=== PATIENT | female | born 1990 | race Asian ===

== ENCOUNTER 2024-12-24 08:01 | Outpatient (AMB) | payer BC, SELFPAY ==
--- OUTSIDE RECORDS SUMMARY | 2024-12-18 08:46 | XMS_ITS | Encounter Summary ---
Author Organization [facility] Address [address] [place] [address] Phone Care Team Providers Care Assembler Show Motor Name Role Phone Christopher Jones CNP Primary Care Provider [phone] Mirna Rosario MD Unavailable [phone] Tamar Herron RN Unavailable [email or web address] Dixie Jones PA-C Unavailable [phone] Encounter Details Date Type Department Care Team (Late st Contact Info) Description 12/18/2024 8:46 AM EDT - 12/18/2024 11:59 PM EDT Hospital Encounter [facility] [address] [place] [address] Christopher Jones CNP 29 [facility] [place] [address] [email or web address] Discharge Disposition: Home or Self Care Social History Tobacco Use Types Packs/Day Years Used Date Smoking Tobacco: Never Smokeless Tobacco: Never Alcohol Use Standard Drinks/Week Comments Never 0 (1 standard drink = 0.6 oz pur e alcohol) Child or Family Care Answer Date Record ed Do you have problems with on e of the following making it difficult for you to work, study, or receive health care? No 12/18/2024 Education Answer Date Recorded Are you interested in help w ith more adult education (for example, completing high school, GED, job training, learning the Chinese language, technical skills, or developing parenting skills)? No 12/18/2024 Are you concerned about learning? Not on file 12/18/2024 No 12/18/2024 Yes 12/18/2024 Food Answer Date Recorded Within the past 6 months we worried whether our food would run out before we got money to buy more. Never True 12/18/2024 Within the past 6 months the food we bought just didn't last and we didn't have enough money to get more. Never True Residential Stability Answer Date Recor ded What is your housing situation today? I have louis sing 12/18/2024 How many times have you move d in the past 12 months? Zero (I did not move) 12/18/2024 Paying for Meds Answer Date Recorded Do you have trouble paying for medicines? No 12/18/2024 Paying Utility Bills Answer Date Record ed Do you have trouble paying your heating or elect ricity bill? No 12/18/2024 Transportation Answer Date Recorded Has the lack of transportati on kept you from medical appointments or from getting medications? No 12/18/2024 Unemployment Answer Date Recorded Are you currently unemployed or working on a part-time or temporary basis, and looking for work? No 12/18/2024 Digital Access Answer Date Recorded No 12/18/2024 Yes 12/18/2024 Do you have reliable internet access at home? Ye s 12/18/2024 Do you have a device (e.g., phone, tablet, computer) with a working camera? Yes 12/18/2024 Intimate Partner Violence Answer Date R ecorded Denied Basic Needs Not on file 12/18/2024 In the past 12 months have y ou been in a relationship with a person who hurts, threatens, or tries to control you? No 12/18/2024 Worried food would run out Not on file 12/18 In the past 12 months have y ou been in a relationship with a person who hurts, threatens, or tries to control you? No 12/18/2024 Comments No Sex and Gender Information Value Date Recorded Sex Assigned at Female 09/01/2022 10:28 AM EDT Legal Sex Female 10:14 AM EDT Gender Identity Female 09/01/2022 10:18 AM EDT Sexual Orientation Straight 09/01/2022 10 :28 AM EDT documented as of this encounter Medications at Time of Discharge AIRSUPRA 90-80 mcg/actuation inhaler Inhale 2 puffs into the lungs daily as needed. 09/26/2023 albuterol 90 mcg/actuation inhalerIndications :Mild intermittent asthma without complication Inhale 2 puffs into the lungs every 6 (six) hours as needed for wheezing. 18 g 3 12/18/2024 cholecalciferol (VITAMIN D3) 2,000 unit capsule Vitamin D3 2,000 unit capsule erythromycin 2 % external solution Apply topically daily as needed (acne). 60 mL 1 12/18/2024 famotidine (PEPCID) 20 MG tablet 20 mg twice a day by oral route. LACTOBAC NO.41-BIFIDOBACT NO.7 ORAL Probiotic lansoprazole (PREVACID) 15 MG capsule 08/02/2021 magnesium glycinate 100 mg magnesium Cap metFORMIN (GLUCOPHAGE-XR) 500 MG 24 hr tabletIndications: PCOS (polycystic ovarian syndrome) Take 1 tablets by mouth in the morning and two tablets by mouth in the evening 270 tablet 2 12/18/2024 ondansetron (ZOFRAN) 4 MG tablet multivitamin with minerals Take by mouth. rimegepant (NURTEC ODT) 75 mg tablet 09/16/2021 SYNTHROID 50 mcg tabletIndications: Female fertility problem Take 1 tablet (50 mcg total) by mouth every morning. 90 tablet 3 12/18/2024 tiZANidine (ZANAFLEX) 2 MG tablet Take 2 mg by mouth every 8 (eight) hours as needed. 08/04/2023 triamcinolone acetonide 0.025 % creamIndications:R sheldon and other nonspecific skin eruption Apply topically 2 (two) times a day as needed (itching). 30 g 1 10/21/2024 documented as of this encounter Plan of Treatment Upcoming Encounters Date Type Department Care Team (Late st Contact Info) Description 12/18/2024 Procedure Pass [facility], [address] [address] 01/21/2025 8:30 AM EDT Telemedicine [facility] at [address] [address] Dixie Jones PA-C [address] [place] [address] 08/05/2025 7:45 AM EDT Appointment [facility], [facility] [address] [place] [address] Christopher Jones, FEEDER SWITCHBOARD OPERATOR [address] [place] [address] [email or web address] 12/24/2025 8:00 AM EDT Office Visit [address] [address] Christopher Jones, FEEDER SWITCHBOARD OPERATOR [address] [place] [address] [email or web address] documented as of this encounter Procedures Procedure Name Priority Date/Time Associated Diagnosis Comments COMPREHENSIVE METABOLIC PANEL Routine 12/18/2024 8:46 AM EDT Iron deficiency PCOS (polycystic ovarian syndrome) Annual physical exam Gastroesophageal reflux disease without esophagitis 25-OH VITAMIN D Routine 12/18/2024 8:46 AM EDT Vitamin D deficiency MAGNESIUM Routine 12/18/2024 8:46 AM EDT Gastroesophageal reflux disease without esophagitis LIPID PANEL Routine 12/18/2024 8:46 AM EDT Screening for hyperlipidemia documented in this encounter Results * Comprehensive metabolic panel (12/18/2024 8:46 AM EDT) SODIUM 137 133 - 146 mmol/L [facility] POTASSIUM 3.9 3.3 - 5.1 mmol/L [facility] CHLORIDE 102 96 - 108 mmol/L [facility] CO2 27 21 - 35 mmol/L [facility] BUN 7 6 - 19 mg/dL [facility] CREATININE 0.50 0.5 - 1.5 mg/dL [facility] GLUCOSE 85 70 - 99 mg/dL [facility] ALBUMIN 4.0 3.9 - 4.8 g/dL [facility] TOTAL PROTEIN 7.5 6.5 - 8.0 g/dL [facility] CALCIUM 9.2 8.4 - 10.3 mg/dL [facility] ALKALINE PHOSPHATASE 60 39 - 117 U/L [facility] TOTAL BILIRUBIN 0.3 0.0 - 1.2 mg/dL [facility] AST 18 0 - 37 U/L [facility] ALT 14 0 - 40 U/L [facility] GLOBULIN 3.5 1 - 4.8 g/dL [facility] EGFR >120 >59 mL/min/1.7 3m2 [facility] Comment:Estimated glomerular filtration rate calculated using the CKD-EPI refit equation. ANION GAP 12 10 - 20 mmol/L [facility] Blood 12/18/2024 8:46 AM EDT 12/18/2024 8:51 AM EDT Christopher Jones [facility] BLOOD ORDERABLES Final Result [address] [address] * Magnesium (12/18/2024 8:46 AM EDT) MAGNESIUM 2.2 1.6 - 2.6 mg/dL [facility] Blood 12/18/2024 8:46 AM EDT 12/18/2024 8:51 AM EDT Christopher Jones [facility] BLOOD ORDERABLES Final Result [address] [address] * 25-OH vitamin D (12/18/2024 8:46 AM EDT) 25 OH VIT D (TOTAL) 57 30 - 60 ng/mL [facility] Blood 12/18/2024 8:46 AM EDT 12/18/2024 8:51 AM EDT Christopher Jones FEEDER SWITCHBOARD OPERATOR LAB BLOOD ORDERABLES Final Result Performing Organization Address [facility] Co de Phone Number [address] [address] * (ABNORMAL) Lipid panel (12/18/2024 8:46 AM EDT) HDL 59 mg/dL [facility] Comment: Interpretation <40 mg/dL: Low HDL cholesterol (major risk factor for CHD) Greater than or equal to 60 mg/dL: High HDL cholesterol ( negative risk factor for CHD) HDL - cholesterol is affected by a number of factors, e.g. smoking, excerise, hormones, sex and age. CHOLESTEROL 226 0 - 240 mg/dL [facility] TRIGLYCERIDES 131 30 - 160 mg/dL [facility] LDL 141(H) 50 - 129 mg/dL [facility] Comment: LDL levels in terms of risk for coronary heart disease: <100 mg/dL: Optimal 100-129 mg/dL: Near or above optimal 130-159 mg/dL: Borderline high 160-189 mg/dL: High >190 mg/dL: Very High CARDIAC RISK RATIO 3.8 3.3 - 4.4 C [facility] Blood 12/18/2024 8:46 AM EDT 12/18/2024 8:50 AM EDT Christopher Jones FEEDER SWITCHBOARD OPERATOR LAB BLOOD ORDERABLES Final Result Performing Organization Address [facility]/ZIP Co de Phone Number [address] [address] documented in this encounter Visit Diagnoses Diagnosis Screening for hyperlipidemia Screening for lipoid disorders Vitamin D deficiency Gastroesophageal reflux disease without esophagitis Esophageal reflux Iron deficiency Disorders of iron metabolism PCOS (polycystic ovarian syndrome) Polycystic ovaries Annual physical exam Routine general medical examination at a health care facility documented in this encounter Additional Health Concerns Assessment Noted Time PHQ-9 Depression Total Score: 3 12/19/19 25 8:10 AM EDT PHQ-2 Depression Total Score: 2 12/19/19 8:10 AM EDT documented as of this encounter Care Teams Assembler Show Motor Relationship Specialty Start Date End Date Christopher Jones CNP [address] [place] [address] [email or web address] PCP - General [facility] 03/16/23 Mirna Rosario MD [address] [place] [address] [email or web address] Obstetrics and Gynecology 10/03/23 Tamar Herron RN [address] [place] [phone] [email or web address] Registered Nurse 10/03/23 Dixie Jones, SACHI [address] [place] [address] [email or web address] Physician Web Development Instructor Physician Web Development Instructor 10/17/24 documented as of this encounter Additional Source Comments The information contained in this document represents components of the legal health record. It is not the complete legal health record.[facility]
--- NOTE | 2024-12-24 08:04 | A.OFFVIS_ITS ---
Vital Signs 12/24/24 08:06 Height 5 ft 3 in Weight 148 lb BMI 26.2 Blood Pressure Location Rt brachial Position Sitting Intake Visit Reasons: Re-Establish Care - Migraine, Migraine Accompanied by: Spouse Allergies Penicillins Allergy (Unknown, Verified 12/24/24 08:05) rash Medication List - Last Reconciled 12/24/24 by Agueda Mai, LIA lansoprazole 15 mg PO DAILY levothyroxine (Synthroid) 50 mcg PO QAM magnesium sulfate 100 mg PO DAILY metformin ER mg PO ondansetron 4 mg PO Q6H PRN rimegepant (Nurtec ODT) mg PO tizanidine 2 mg PO Q8H PRN HPI Comments Details: Main is a 34-year-old female patient with a past medical history of asthma and PCOS presenting to the office today to re-establish care with myself, transferring from [facility]. She was a previous patient of mine at [facility] where she was receiving occipital nerve blocks and trigger point injections routinely for headache maintenance. Going back many years, Main being having headaches around age 9 at the time of her menses onset. When her migraines 1st began, they were predominantly located on the right side of her head though in college headaches worsened and became more left-sided dominant. She also has a history of bruxism which has likely contributed to her headaches overall. Currently, headaches are still left-sided dominant though do still occur at times on the right. Headache locations are typically to the temporal areas and occipital areas. She is currently averaging approximately 5 migraines per month lasting 2-6 hours. The sooner she takes an abortive medication the shorter duration of headache. She experiences visual auras with approximately 25% of her migraines are less. 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 This has occurred 3 times in her lifetime that she is aware of. Most of her migraines are accompanied by nausea, difficulty concentrating, light and sound sensitivity, fatigue, and occasionally a droopy left eye. When she does have a migraine, she takes Nurtec 75 mg which works well at approximately 75% efficacy. She has tried Ubrelvy in the past which did work better although has been difficult to obtain due to insurance preferred agents. She started occipital nerve blocks and temporal trigger point injections approximately 8 years ago. For some time, she was also doing a left auricular temporal nerve block however she feels that over the course of last few years her bruxism has improved some and we have not been performing left auricular temporal nerve blocks over the past year or so. She does continue to do well with the nerve blocks and trigger point injections and previously with attempts to reduce the frequency at which she was getting the injections, she had an uptake in her migraines. She is currently getting them once per month with good headache control. Social: Lives home with Works pharmacy at the [employer] from home. ETOH: None Tobacco: Never Substance use: None Caffeine: 1-2 cups coffee per day Sleep: Sleeps about 8-9 hours per night and feels generally rested in the morn ing. Last eye exam: 03/2024 Past medication trials: Sumatriptan- Not effective Frovatriptan- Not effective Rizatriptan- Not effective Naratriptan- Not effective Propranolol- Dizziness, no significant benefit Ubrelvy- Worked well. Stopped for insurance purposes Nurte- Works well Gabapentin- Not effective Cyclobenzaprine- Excessive sedation Cymbalta- Hypertension Prior workup: MRI brain 07/19/2024 performed at [facility]: [facility] Medical History (Updated 12/24/24 @ 09:06 by Agueda Mai CNP) Migraine Review of Systems Const Reports as per HPI Physical Exam Const General: cooperative, healthy appearing, comfortable and no acute distress Orientation/consciousness: patient oriented x3 Limitations: no limitations HEENT Head: Yes normal to inspection and Yes scalp tenderness (Bilateral occipital notch tenderness and left temporal tenderness) Teeth and gingiva: dentition normal Eyes General: appearance normal, both eyes and all related structures Pupils: Equal, round and reactive pupils present Neuro General: patient oriented x3, moves all extremities, normal sensation to monofilament and deep tendon reflexes 2+ bilaterally Cranial nerves: Yes CN's II-XII intact bilaterally and Yes Equal, round and reactive pupils present Cognition (Neuro): normal cognition Gait exam (Neuro): Normal gait present Motor exam (neuro): 5/5 motor strength present throughout, Pronator motor function not present and no tremor noted Sensory Exam: double simultaneous stimulation for sensation normal Coordination: [id number] test normal Office Procedures Nerve Block Details: Bilateral Greater Occipital Nerve block procedure: Laterally: Bilateral Indications: Occipital neuralgia Current allergies and current list of medications were reviewed prior to procedure, verbal consent was obtained, procedure was explained in detail to the patient prior to starting. Time-out was performed prior to procedure. Following universal hygiene protocols, patient's left occipital area was located by drawing a line between the external occipital protuberance and the mastoid process. The greater occipital nerve was located approximately 2/3 along this continuous pickling line pickler to the occiput, and corresponded with the point of maximum tenderness. Alcohol was applied topically to the skin. A 27 gauge needle (aspirating during insertion) was inserted at a 45 degree angle until just above the periosteum. The providers selected agent (s)/medications (as documented in this note) were injected on the left side (directing needle to center, left and right of painful focus any fanning technique). Pressure with gauze pad was held briefly upon the site of puncture to minimize bleeding and to further spread anesthetic subcutaneously. The procedure was repeated on the right side. CPT: 28113-Sxugpuw Occipital (Bilateral ) Procedure code (CPT) selection complete Therapeutic Injection Therapeutic Injection Details: Trigger point injection procedure: Laterally:Left Indications: Chronic headaches, myofascial pain Following universal hygiene protocol, after explaining the risks and benefits as well as hazards of the procedure to the patient, consent was signed and placed in the chart. Time-out prior to starting the procedure was performed. The areas over the left temporalis muscle were cleansed with alcohol. 5 Sites in each temporalis muscle injected with a 27 gauge 1.5 in needle with myofascial spasm. Patient tolerated the procedure well, localized bleeding was controlled. Patient monitored in the clinic for 15 minutes for complications. Patient was discharged home with instructions to apply ice to the back of their head as needed. [address]2666-[id number] Point Injection 1 or 2 sites All charges added?: Procedure code (CPT) selection complete Office Meds bupivacaine (PF) 0.25 % (2.5 mg/mL) injection solution Performing Provider: Agueda Mai CNP Performing Location: [facility] [place] Neurology and Sleep-Hol Administered by: Agueda Mai CNP on 12/24/24 08:30 Dose Route Admin Location Dispensed Lot Number Expiration Date [facility] [employer] 6 mL Infiltration 10 mL [id number] [employer] Total Dispensed Waste 10 mL 40 % bupivacaine (PF) 0.25 % (2.5 mg/mL) injection solution Performing Provider: Agueda Mai CNP Performing Location: [facility] [place] Neurology and Sleep-Hol Administered by: Agueda Mai CNP on 12/24/24 08:30 Dose Route Admin Location Dispensed Lot Number Expiration Date [employer] 1 mL Infiltration 10 mL [id number] [employer] Total Dispensed Waste 10 mL 90 % Assessment & Plan Assessment & Plan (1) Migraine: Code(s): G43.909 - Migraine, unspecified, not intractable, without status migrainosus Plan: . (2) Bilateral occipital neuralgia: Code(s): M54.81 - Occipital neuralgia Category: Medical Plan: . Plan Main is a 34-year-old female patient with a past medical history of asthma and PCOS presenting to the office today to re-establish care with myself, transferring from [facility]. She was a previous patient of mine at [facility] where she was receiving occipital nerve blocks and t rigger helper point injections routinely for headache maintenance. Headaches have been stable with bilateral occipital nerve blocks, left temporal and trigger point injections, and use of as-needed Nurtec 75 mg for acute therapy. Occipital nerve block performed in the office today. We will plan to perform another round of nerve blocks and trigger point injections in approximately 1 month. -follow-up in 1 month for repeat trigger point and occipital nerve block injections -continue Nurtec 75 mg as needed -set up patient portal for optimization of patient's provider communication (patient was given QR code to set this up) Orders: Orders AMB Nerve Block Today M54.81 - Occipital neuralgia AMB Trigger Point Injection Today F45.8 - Other somatoform disorders, G43.109 - Migraine with aura, not intractable, without status migrainosus Medications: New tizanidine 2 mg PO Q8H PRN 30 tabs 0RF muscle spasm rimegepant (Nurtec ODT) 75 mg PO ONCE PRN 16 tabs 5RF migraine headache Coding Level of Care Code New Pt Level 4 (35149) Diagnoses Migraine G43.909 Bilateral occipital neuralgia M54.81 CPT Codes Nerve Block - CPT: 47207-Cyancvr Occipital ([id number]) Therapeutic Injection - Ther Injection 1: 47823-Tvshpym Point Injection 1 or 2 sites ([id number])
[2024-12-24 08:06] VITALS: BMI 26.2
--- OUTSIDE RECORDS SUMMARY | 2024-12-24 08:32 | XMS_ITS | Clinical Summary ---
Author Organization [facility] Health Address [address] [place] [address] Care Team Providers Care Director Pharmacology Name Role Phone Unavailable Primary Care Provider Unavailabl e Allergies Active Allergy Reactions Criticality Noted Date Comments Penicillins Hives,Rash Low 12/01/2016 hives Medications ascorbate calcium, vitamin C, (Vitamin C, ascorbate calcium,) 814 mg/gram powder Take by mouth. Active zinc sulfate 66 mg tablet Take by mouth. Activ e prenat.vits,april, azl-pcin-fxsvw tablet Take by mouth. Activ e LACTOBAC NO.41-BIFIDOBACT NO.7 ORAL Probiotic Active coQ10, liposomal ubiquinol, 100 mg/5 mL suspension Take by mouth. Acti ve albuterol HFA (PROVENTIL HFA;VENTOLIN HFA) 90 mcg/actuation inhaler 2 Active cholecalciferol (VITAMIN D-3) 50 mcg (2,000 unit) capsule Vitamin D3 2,000 unit capsule Active erythromycin with ethanoL (THERAMYCIN) 2 % external solution Apply topically. 1 Active fluconazole (DIFLUCAN) 150 mg tablet 2 Active gabapentin (NEURONTIN) 100 mg capsule 2 Active ketorolac (TORADOL) 10 mg tablet 2 Active lansoprazole (PREVACID) [address] capsule 2 Active Synthroid 50 mcg tablet 2 Active lidocaine (XYLOCAINE) 4 % (40 mg/mL) external solution SPRAY 1 SPRAY IN EACH NOSTRIL EVERY 4 HOURS NEEDED HEADACHE 2 Active magnesium oxide 250 mg magnesium tablet Take 250 mg by mouth. Active metFORMIN XR (GLUCOPHATE-XR) 500 mg 24 hr tablet 2 Active metroNIDAZOLE (METROGEL) 0.75 % vaginal gel 2 Active ondansetron ODT (ZOFRAN-ODT) 4 mg dispersible tablet DISSOLVE 1 TABLET ON THE TONGUE EVERY 8 HOURS NEEDED FOR NAUSEA. DO NOT FILL UNTIL 2 Active oxyCODONE (ROXICODONE) 5 mg immediate release tablet 2 Active riboflavin, vitamin B2, 400 mg tablet Take by mouth. Activ e Nurtec ODT 75 mg tablet,disintegr ating 2 Active tiZANidine (ZANAFLEX) 2 mg tablet TAKE 0.5-1 TABLETS BY MOUTH EVERY 8 HOURS NEEDED HEADACHE 2 Active ubrogepant 100 mg tablet Ubrelvy 100 mg tablet Active Active Problems Problem Noted Date Diagnosed Date Muscle spasm 10/02/2021 Hypothyroidism 08/23/2021 Dysmenorrhea 08/19/2021 Infertility, female 01/11/2021 Neck pain 11/13/2019 PCOS (polycystic ovarian syndrome) 01/05/2017 Overview (10/28/2021): Medication: Metformin Er: 1000 mg daily Last Assessment & Plan: Medication: Metformin Er: 1000 mg daily RF per orders. Gastroesophageal reflux disease without esophagi tis 12/01/2016 Overview (10/28/2021): Medications: Lansoprazole: 15 mg daily Famotidine: 20 mg 2 times a day Tried: high dose Omeprazole- didn't control sx's Pantoprazole: caused increased migraines. Last Assessment & Plan: Medications: Lansoprazole: 15 mg daily Famotidine: 20 mg 2 times a day Tried: high dose Omeprazole- didn't control sx's Pantoprazole: caused increased migraines. Chronic and stable. Migraines 12/01/2016 Mild intermittent asthma without complication Overview (10/28/2021): Medications: Fluticasone MDI: 2 puffs 2 times a day Albuterol MDI: 1-2 puffs q.4 hours prn Last Assessment & Plan: RF per orders. Prediabetes 12/01/2016 Overview (10/28/2021): Medication: Metformin Er: 1000 mg daily Last Assessment & Plan: Check labs and Follow up with results. Social History Tobacco Use Types Packs/Day Years Used Date Smoking Tobacco: Never Assessed Comments Unknown Sex and Gender Information Value Date Recorded Sex Assigned at Not on file Legal Sex Female 8:51 AM PST Gender Identity Not on file Sexual Orientation Not on file Last Filed Vital Signs Vital Sign Reading Time Taken Comments Blood Pressure 122/90 10/28/2021 5:08 PM MDT Pulse 91 10/28/2021 5:08 PM MDT Temperature - - Respiratory Rate - - Oxygen Saturation - - Inhaled Oxygen Concentration - - Weight - - Height - - Body Mass Index - - Plan of Treatment Health Maintenance Due Date Last Done Comments Dental X-Ray: Full Mouth 02/05/2020 02/03/2017 Dental X-Ray: Panoramic 02/05/2020 02/03/2017 Velscope Screening 08/03/2021 02/02/2021, 1 04/19/2019, 08/21/2018, Additional history exists Dental Oral Exam 08/04/2021 02/02/2021, 12/2020, 10/29/2019, Additional history exists Dental X-Ray: Bitewings 08/04/2021 02/02/2021 Dental Prophylaxis 05/01/2022 10/28/2021, 1 , 10/13/2020, Additional history exists Procedures Procedure Name Priority Date/Time Associated Diagnosis Comments PROPHYLAXIS - ADULT Routine 10/28/2021 5 :00 PM MDT ADJUNCTIVE PRE-DIAGNOSTIC TEST THAT AIDS IN DETECTION OF MUCOSAL ABNORMALITIES Routine 02/02/2021 1:00 AM MDT PERIODIC ORAL EVALUATION - ESTABLISHED PATIENT Routine 02/02/2021 1:00 AM MDT PANORAMIC RADIOGRAPHIC IMAGE Routine 02/03/2017 1:00 AM MDT INTRAORAL - COMPREHENSIVE SERIES OF RADIOGRAPHIC IMAGES Routine 02/03/2017 1:00 AM MDT from Last 3 Months or Most Recently Relevant to Health Maintenance Insurance [facility] [place] [facility] CONNECTION DIRECT CARE [employer] [id number]
--- OUTSIDE RECORDS SUMMARY | 2024-12-24 08:32 | XMS_ITS | Encounter Summary ---
Author Organization [facility] Address [address] [place] [id number] Phone Care Team Providers Care Associate Name Role Phone Christopher Jones CNP Primary Care Provider [phone] Mirna Rosario MD Unavailable [phone] Tamar Herron RN Unavailable [email or web address] Dixie Jones PA-C Unavailable [phone] Encounter Details Date Type Department Care Team (Late st Contact Info) Description 10/31/2023 Transcribe Orders [facility] Specimen Processing [address] [place] [address] Christopher Jones CNP [address] [facility] [place] [address] [email or web address] Social History Tobacco Use Types Packs/Day Years Used Date Smoking Tobacco: Never Smokeless Tobacco: Never Alcohol Use Standard Drinks/Week Comments Never 0 (1 standard drink = 0.6 oz pur e alcohol) Education Answer Date Recorded Are you interested in more education? Not on heidi e 09/01/2022 Are you concerned about learning? Not on file 09/01/2022 No 09/01/2022 No 09/01/2022 Digital Access Answer Date Recorded No 09/13/2022 No 09/13/2022 Reliable internet access at home? Not on file 09/13/2022 Device with a working camera? Not on file Comments Unknown Sex and Gender Information Value Date Recorded Sex Assigned at Female 09/01/2022 10:28 AM EDT Legal Sex Female 10:14 AM EDT Gender Identity Female 09/01/2022 10:18 AM EDT Sexual Orientation Straight 09/01/2022 10 :28 AM EDT documented as of this encounter Plan of Treatment Upcoming Encounters Date Type Department Care Team (Late st Contact Info) Description 12/18/2024 Procedure Pass [address] [address] 01/21/2025 8:30 AM EDT Telemedicine [facility] at [address] [address] Dixie Jones PA-C [address] [place] [id number] 08/05/2025 7:45 AM EDT Appointment [address] [address] Christopher Jones CNP [address] [place] [email or web address] 12/24/2025 8:00 AM EDT Office Visit [address] [address] Christopher Jones CNP [address] [place] [phone] documented as of this encounter Visit Diagnoses Not on filedocumented in this encounter Care Teams Associate Relationship Specialty Start Date End Date Christopher Jones CNP [address] [place] [phone] PCP - General Family Medicine 03/16/23 Mirna Rosario MD [address] [place] [address] [address] [place] [address] [email or web address] Obstetrics and Gynecology 10/03/23 Tamar Herron RN [address] [place] [phone] [email or web address] Registered Nurse 10/03/23 Dixie Jones PA-C [address] [place] [phone] [email or web address] Physician [employer] Physician [employer] 10/17/24 documented as of this encounter Additional Source Comments The information contained in this document represents components of the legal health record. It is not the complete legal health record.[facility]
--- OUTSIDE RECORDS SUMMARY | 2024-12-24 08:32 | XMS_ITS | Encounter Summary ---
Author Organization [facility] Health Address [address] [place] [address] Care Team Providers Care Research Fellow Name Role Phone Unavailable Primary Care Provider Unavailabl e Prior Encounters Date Type Department Care Team Description 10/28/2021 5:00 PM MDT Office Visit [facility] [address], [address] [place], [employer] [phone] Diane Estrada, [facility] 05/06/2019 Converted CPS Chart Documents [facility] [address] [email or web address] [phone] <No scans attached> 05/06/2019 Converted CPS Chart Documents [facility] [address], [address] [employer] [id number] <No scans attached> 05/06/2019 Converted CPS Chart Documents [facility] [address] [place] [address] , [address] [place] [address] <No scans attached> 05/06/2019 Converted CPS Chart Documents [facility] [address], [address] [place], [employer] [phone] <No scans attached> 05/06/2019 Converted 13x Documents [facility] [address] [place] [phone] <No scans attached> 05/06/2019 Converted 13x Documents [facility] [address], [address] [place] [id number] <No scans attached> 05/06/2019 Converted 13x Documents [facility] [address] [place] [address] , [address] [place] [address] <No scans attached> 05/06/2019 Converted 13x Documents [facility] [address], [address] [place] [address] <No scans attached> Last Filed Vital Signs Vital Sign Reading Time Taken Comments Blood Pressure 122/90 10/28/2021 5:08 PM MDT Pulse 91 10/28/2021 5:08 PM MDT Temperature - - Respiratory Rate - - Oxygen Saturation - - Inhaled Oxygen Concentration - - Weight - - Height - - Body Mass Index - - Plan of Treatment Not on file Procedures Procedure Name Priority Date/Time Associated Diagnosis Comments ORAL HYGIENE INSTRUCTIONS Routine 2021 5:00 PM MDT PROPHYLAXIS - ADULT Routine 10/28/2021 5 :00 PM MDT OFFICE VISIT FOR OBSERVATION (DURING REGULARLY SCHEDULED HOURS) - NO OTHER SERVICES PERFORMED Routine 02/08/2021 1:00 AM MDT 13 CORE BUILDUP, INCLUDING ANY PINS WHEN REQUIRED Routine 02/05/2021 1:00 AM MDT 13 CEMENT CROWN Routine 02/05/2021 1:00 AM MDT 13 CEREC CROWN POST Routine 02/05/2021 1 :00 AM MDT ADDITIONAL X-RAY Routine 02/05/2021 1:00 AM MDT SINGLE X-RAY Routine 02/05/2021 1:00 AM MDT 3 O COMPOSITE FILLING Routine 02/05/2021 1:00 AM MDT ADJUNCTIVE PRE-DIAGNOSTIC TEST THAT AIDS IN DETECTION OF MUCOSAL ABNORMALITIES Routine 02/02/2021 1:00 AM MDT ORAL HYGIENE INSTRUCTIONS Routine 2020 1:00 AM MDT TOPICAL APPLICATION OF FLUORIDE VARNISH Routine 02/02/2021 1:00 AM MDT PROPHYLAXIS - ADULT Routine 02/02/2021 1 :00 AM MDT PERIODIC ORAL EVALUATION - ESTABLISHED PATIENT Routine 02/02/2021 1:00 AM MDT BITEWINGS - FOUR RADIOGRAPHIC IMAGES Routine 02/02/2021 1:00 AM MDT ADDITIONAL X-RAY Routine 02/02/2021 1:00 AM MDT ADDITIONAL X-RAY Routine 02/02/2021 1:00 AM MDT ADDITIONAL X-RAY Routine 02/02/2021 1:00 AM MDT ADDITIONAL X-RAY Routine 02/02/2021 1:00 AM MDT ADDITIONAL X-RAY Routine 02/02/2021 1:00 AM MDT SINGLE X-RAY Routine 02/02/2021 1:00 AM MDT ORAL HYGIENE INSTRUCTIONS Routine 2020 1:00 AM MDT PROPHYLAXIS - ADULT Routine 10/13/2020 1 :00 AM MDT ORAL HYGIENE INSTRUCTIONS Routine 2020 1:00 AM MST TOPICAL APPLICATION OF FLUORIDE VARNISH Routine 06/23/2020 1:00 AM MST PROPHYLAXIS - ADULT Routine 06/23/2020 1 :00 AM MST PERIODIC ORAL EVALUATION - ESTABLISHED PATIENT Routine 06/23/2020 1:00 AM MST ADJUNCTIVE PRE-DIAGNOSTIC TEST THAT AIDS IN DETECTION OF MUCOSAL ABNORMALITIES Routine 02/18/2020 1:00 AM MST ORAL HYGIENE INSTRUCTIONS Routine 2019 1:00 AM MST PROPHYLAXIS - ADULT Routine 02/18/2020 1 :00 AM MST ORAL HYGIENE INSTRUCTIONS Routine 2019 1:00 AM MDT TOPICAL APPLICATION OF FLUORIDE VARNISH Routine 10/29/2019 1:00 AM MDT PROPHYLAXIS - ADULT Routine 10/29/2019 1 :00 AM MDT PERIODIC ORAL EVALUATION - ESTABLISHED PATIENT Routine 10/29/2019 1:00 AM MDT BITEWINGS - FOUR RADIOGRAPHIC IMAGES Routine 10/29/2019 1:00 AM MDT ORAL HYGIENE INSTRUCTIONS Routine 2019 1:00 AM MDT 1 FM IRR W/GROSS SCALE Routine 0 1:00 AM MDT PROPHYLAXIS - ADULT Routine 06/25/2019 1 :00 AM MDT ORAL HYGIENE INSTRUCTIONS Routine 2018 1:00 AM MST 1 FM IRR W/PERIO MAINT Routine 9 1:00 AM MST TOPICAL APPLICATION OF FLUORIDE VARNISH Routine 03/07/2019 1:00 AM MST PROPHYLAXIS - ADULT Routine 03/07/2019 1 :00 AM MST PERIODIC ORAL EVALUATION - ESTABLISHED PATIENT Routine 03/07/2019 1:00 AM MST OCCLUSAL GUARD DELIVERY Routine 09/19/19 1:00 AM MDT ADJUNCTIVE PRE-DIAGNOSTIC TEST THAT AIDS IN DETECTION OF MUCOSAL ABNORMALITIES Routine 08/21/2018 1:00 AM MDT ORAL HYGIENE INSTRUCTIONS Routine 2018 1:00 AM MDT TOPICAL APPLICATION OF FLUORIDE VARNISH Routine 08/21/2018 1:00 AM MDT PROPHYLAXIS - ADULT Routine 08/21/2018 1 :00 AM MDT PERIODIC ORAL EVALUATION - ESTABLISHED PATIENT Routine 08/21/2018 1:00 AM MDT BITEWINGS - FOUR RADIOGRAPHIC IMAGES Routine 08/21/2018 1:00 AM MDT CANCELLED APPOINTMENT Routine 07/16/2018 1:00 AM MDT OFFICE VISIT FOR OBSERVATION (DURING REGULARLY SCHEDULED HOURS) - NO OTHER SERVICES PERFORMED Routine 07/05/2018 1:00 AM MDT OCCLUSAL GUARD DELIVERY Routine 06/27/19 19 1:00 AM MDT 15 OCCLUSAL ADJUSTMENT - LIMITED Routine 05/29/2018 1:00 AM MST 14 OCCLUSAL ADJUSTMENT - LIMITED Routine 05/29/2018 1:00 AM MST 13 OCCLUSAL ADJUSTMENT - LIMITED Routine 05/29/2018 1:00 AM MST 12 OCCLUSAL ADJUSTMENT - LIMITED Routine 05/29/2018 1:00 AM MST OFFICE VISIT FOR OBSERVATION (DURING REGULARLY SCHEDULED HOURS) - NO OTHER SERVICES PERFORMED Routine 03/21/2018 1:00 AM MST 12 ENDODONTIC THERAPY, PREMOLAR TOOTH (EXCLUDING FINAL ADVENTISM) Routine 02/21/2018 1:00 AM MST 12 CEREC CROWN POST Routine 02/21/2018 1 :00 AM MST 5 DO CEREC INLAY 2 SURF Routine 02/22/20 18 1:00 AM MST 4 MO CEREC INLAY 2 SURF Routine 02/22/20 18 1:00 AM MST ORAL HYGIENE INSTRUCTIONS Routine 2017 1:00 AM MST TOPICAL APPLICATION OF FLUORIDE VARNISH Routine 02/21/2018 1:00 AM MST PROPHYLAXIS - ADULT Routine 02/21/2018 1 :00 AM MST PERIODIC ORAL EVALUATION - ESTABLISHED PATIENT Routine 02/21/2018 1:00 AM MST 13 MOD COMPOSITE FILLING Routine 018 1:00 AM MST 14 MO COMPOSITE FILLING Routine 02/22/20 18 1:00 AM MST 30 O COMPOSITE FILLING Routine 8 1:00 AM MST OCCLUSAL GUARD DELIVERY Routine 01/25/20 18 1:00 AM MDT CANCELLED APPOINTMENT Routine 01/10/2018 1:00 AM MDT OCCLUSAL GUARD DELIVERY Routine 12/14/19 18 1:00 AM MDT OCCLUSAL GUARD DELIVERY Routine 11/03/19 18 1:00 AM MDT OCCLUSAL GUARD SOFT APPLIANCE, FULL ARCH Routine 09/22/2017 1:00 AM MDT CANCELLED APPOINTMENT Routine 08/22/2017 1:00 AM MDT ORAL HYGIENE INSTRUCTIONS Routine 2017 1:00 AM MDT TOPICAL APPLICATION OF FLUORIDE VARNISH Routine 08/10/2017 1:00 AM MDT PROPHYLAXIS - ADULT Routine 08/10/2017 1 :00 AM MDT PERIODIC ORAL EVALUATION - ESTABLISHED PATIENT Routine 08/10/2017 1:00 AM MDT BITEWINGS - FOUR RADIOGRAPHIC IMAGES Routine 08/10/2017 1:00 AM MDT ADDITIONAL X-RAY Routine 08/10/2017 1:00 AM MDT ADDITIONAL X-RAY Routine 08/10/2017 1:00 AM MDT ADDITIONAL X-RAY Routine 08/10/2017 1:00 AM MDT ADDITIONAL X-RAY Routine 08/10/2017 1:00 AM MDT ADDITIONAL X-RAY Routine 08/10/2017 1:00 AM MDT SINGLE X-RAY Routine 08/10/2017 1:00 AM MDT OFFICE VISIT FOR OBSERVATION (DURING REGULARLY SCHEDULED HOURS) - NO OTHER SERVICES PERFORMED Routine 04/03/2017 1:00 AM MST SINGLE X-RAY Routine 03/21/2017 1:00 AM MST 29 DO COMPOSITE FILLING Routine 03/21/20 17 1:00 AM MST 12 ENDODONTIC THERAPY, PREMOLAR TOOTH (EXCLUDING FINAL ADVENTISM) Routine 02/22/2017 1:00 AM MST 12 CORE BUILDUP, INCLUDING ANY PINS WHEN REQUIRED Routine 02/22/2017 1:00 AM MST 12 CEMENT CROWN Routine 02/22/2017 1:00 AM MST SINGLE X-RAY Routine 02/22/2017 1:00 AM MST 12 ENDODONTIC THERAPY, PREMOLAR TOOTH (EXCLUDING FINAL ADVENTISM) Routine 02/08/2017 1:00 AM MDT 12 ENDO CONSULT Routine 02/08/2017 1:00 AM MDT 12 PULPAL DEBRIDEMENT, PRIMARY AND PERMANENT TEETH Routine 02/07/2017 1:00 AM MDT 12 CEREC CROWN POST Routine 02/07/2017 1 :00 AM MDT 5 DO CEREC INLAY 2 SURF Routine 02/08/20 17 1:00 AM MDT 4 MO CEREC INLAY 2 SURF Routine 02/08/20 17 1:00 AM MDT BITEWINGS - FOUR RADIOGRAPHIC IMAGES Routine 02/07/2017 1:00 AM MDT 13 MOD COMPOSITE FILLING Routine 017 1:00 AM MDT 14 MO COMPOSITE FILLING Routine 02/08/20 17 1:00 AM MDT 12 DO COMPOSITE FILLING Routine 02/08/20 17 1:00 AM MDT 5 DO COMPOSITE FILLING Routine 7 1:00 AM MDT 4 MO COMPOSITE FILLING Routine 7 1:00 AM MDT 30 O COMPOSITE FILLING Routine 7 1:00 AM MDT ADJUNCTIVE PRE-DIAGNOSTIC TEST THAT AIDS IN DETECTION OF MUCOSAL ABNORMALITIES Routine 02/03/2017 1:00 AM MDT ORAL HYGIENE INSTRUCTIONS Routine 2016 1:00 AM MDT TOPICAL APPLICATION OF FLUORIDE VARNISH Routine 02/03/2017 1:00 AM MDT PROPHYLAXIS - ADULT Routine 02/03/2017 1 :00 AM MDT COMPREHENSIVE ORAL EVALUATION - NEW OR ESTABLISHED PATIENT Routine 02/03/2017 1:00 AM MDT PANORAMIC RADIOGRAPHIC IMAGE Routine 02/03/2017 1:00 AM MDT INTRAORAL - COMPREHENSIVE SERIES OF RADIOGRAPHIC IMAGES Routine 02/03/2017 1:00 AM MDT INTRAORAL PHOTO Routine 02/03/2017 1:00 AM MDT INTRAORAL PHOTO Routine 02/03/2017 1:00 AM MDT INTRAORAL PHOTO Routine 02/03/2017 1:00 AM MDT INTRAORAL PHOTO Routine 02/03/2017 1:00 AM MDT 13 MOD COMPOSITE FILLING Routine 017 1:00 AM MDT 12 DO COMPOSITE FILLING Routine 02/04/20 17 1:00 AM MDT 5 DO COMPOSITE FILLING Routine 7 1:00 AM MDT 4 MO COMPOSITE FILLING Routine 7 1:00 AM MDT 30 O COMPOSITE FILLING Routine 7 1:00 AM MDT 14 O COMPOSITE FILLING Routine 7 1:00 AM MDT Visit Diagnoses Not on file Insurance [facility] [place] [employer] [place] CONNECTION DIRECT CARE INDUSTRIAL SAFETY AND HEALTH SPECIALIST OR SUPPLIER FEDERAL [place]PE[place] [id number]
--- OUTSIDE RECORDS SUMMARY | 2024-12-24 08:33 | XMS_ITS | Clinical Summary ---
Author Organization [facility] Address [address] [place] [phone] Phone Care Team Providers Care Registered Nurse Float Pool Name Role Phone Christopher Carson CNP Primary Care Provider [phone] Mirna Rosario MD Unavailable [phone] Tamar Herron RN Unavailable [email or web address] [email or web address] Dixie Carson PA-C Unavailable [phone] Allergies Active Allergy Reactions Criticality Noted Date Comments Penicillin 07/31/2023 rash Penicillins Hives,Rash Low 12/01/2016 hives hives hives Medications rimegepant (NURTEC ODT) 75 mg tablet 2 Active multivitamin with minerals Take by mouth. Active ondansetron (ZOFRAN) 4 MG tablet Active magnesium glycinate 100 mg magnesium Cap Active lansoprazole (PREVACID) 15 MG capsule 2 Active famotidine (PEPCID) 20 MG tablet 20 mg twice a day by oral route. Active cholecalciferol (VITAMIN D3) 2,000 unit capsule Vitamin D3 2,000 unit capsule Active LACTOBAC NO.41-BIFIDOBACT NO.7 ORAL Probiotic Active tiZANidine (ZANAFLEX) 2 MG tablet Take 2 mg by mouth every 8 (eight) hours as needed. 4 Active AIRSUPRA 90-80 mcg/actuation inhaler Inhale 2 puffs into the lungs daily as needed. 4 Active triamcinolone acetonide 0.025 % creamIndications :Rash and other nonspecific skin eruption Apply topically 2 (two) times a day as needed (itching). 30 g 1 5 Active albuterol 90 mcg/actuation inhalerIndicatio ns:Mild intermittent asthma without complication Inhale 2 puffs into the lungs every 6 (six) hours as needed for wheezing. 18 g 3 5 Active metFORMIN (GLUCOPHAGE-XR) 500 MG 24 hr tabletIndication s:PCOS (polycystic ovarian syndrome) Take 1 tablets by mouth in the morning and two tablets by mouth in the evening 270 tablet 2 5 Active SYNTHROID 50 mcg tabletIndication s:Female fertility problem Take 1 tablet (50 mcg total) by mouth every morning. 90 tablet 3 5 Active erythromycin 2 % external solution Apply topically daily as needed (acne). 60 mL 1 5 Active albuterol 90 mcg/actuation inhaler 2 12/19/19 25 Discontin ued(Dupli mary order) metFORMIN (GLUCOPHAGE-XR) 500 MG 24 hr tablet TAKE 1 TABLET IN THE MORNING AND TAKE 2 TABLETS IN THE EVENING (=3 TABLETS (1500MG TOTAL) 270 tablet 2 5 12/19/19 25 Discontin ued(Reord er) erythromycin 2 % external solution Apply topically daily as needed. 60 mL 1 5 12/19/19 25 Discontin ued(Reord er) albuterol 90 mcg/actuation inhaler Inhale 2 puffs into the lungs every 6 (six) hours as needed for wheezing. 18 g 1 5 12/19/19 25 Discontin ued(Reord er) SYNTHROID 50 mcg tablet Take 1 tablet (50 mcg total) by mouth every morning. 90 tablet 1 5 12/19/19 25 Discontin ued(Reord er) Active Problems Problem Noted Date Diagnosed Date Encounter for screening mamm ogram for malignant neoplasm of breast 12/18/2024 Assessment & Plan (12/18/2024 8:49 AM EDT): Start screening at age 35. Order entered and phone # provided for patient for scheduling. CBE completed today and will do with [employer] ENGINEER as well Vitamin D deficiency 12/18/2024 Assessment & Plan (12/18/2024 8:48 AM EDT): History of, will check labs to ensure normal Iron deficiency 10/10/2024 Assessment & Plan (12/18/2024 8:48 AM EDT): Received iron infusion. Has follow-up with hematology with labs prior 01/2025 Screening for hyperlipidemia 12/14/2023 Assessment & Plan (12/18/2024 8:49 AM EDT): Routine fasting labs ordered today and will follow-up with results Assessment & Plan (12/14/2023 8:55 AM EDT): Last done 12/2020, routine fasting labs ordered today and will follow-up with results. Encourage healthy diet/regular exercise Right hip pain 12/14/2023 Assessment & Plan (12/14/2023 8:55 AM EDT): Has been doing home exercises with management Family history of breast cancer 12/14/2023 Overview (05/24/2024): Patient needs to start mammos at 35 yrs old Assessment & Plan (12/18/2024 8:47 AM EDT): Mother with DCIS at age 47. Plan to start yearly mammograms at age 35. CBE completed today. 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 Will start with mammogram screenings at age 35 Hives 08/04/2023 Assessment & Plan (12/18/2024 8:48 AM EDT): No recent/recurrence of episodes. Has allergy to see as needed Assessment & Plan (08/04/2023 8:56 AM EDT): Unclear etiology, no SOB/trouble breathing. VSS. Encourage use of Pepcid BID, can also take Zyrtec twice a day for the next few days. Avoid any new products/lotions. Will give medrol dosepak to have as needed if no improvement and/or worsening symptoms. Reviewed side effects/risks/benefits. Advised if no improvement over the weekend to call on-call services and/or follow-up in office next week for evaluation. SI (sacroiliac) joint dysfunction 07/31/2023 Assessment & Plan (12/18/2024 8:48 AM EDT): On/off bothersome, has home exercises/stretches to do as needed Assessment & Plan (07/31/2023 2:15 PM EDT): *see plan per low back pain PCOS (polycystic ovarian syndrome) 11/10/2022 Assessment & Plan (12/18/2024 8:48 AM EDT): On Metformin. Follows with [employer] and will arrange routine visit. Menses regularly, pap smear utd Assessment & Plan (12/14/2023 8:53 AM EDT): On Metformin. Gets menses regularly but has noticed flow has decreased and slightly longer time inbetween. Unsure if related to anti-histamine. Would be interested in establishing care with [employer], referral entered and phone # provided for patient Assessment & Plan (03/16/2023 5:05 PM EST): On Metformin, menses regularly Assessment & Plan (11/10/2022 10:10 AM EDT): Since menarche GERD (gastroesophageal reflux disease) Assessment & Plan (12/18/2024 8:50 AM EDT): On PPI. Has attempted to come off with recurrence of symptoms. May consider in the future. Will check magnesium level to ensure normal due to being on long-term PPI per patient request. Also ensure adequate calcium/vitamin D and regular weight bearing exercises due to potential risk for osteoporosis with long-term use Assessment & Plan (08/04/2023 8:57 AM EDT): Feels food may have gotten stuck and slightly worse last night and this am. Improved with TUMS. No trouble swallowing. Advised symptoms should improve and continue with PPI. Aware to follow-up if no improvement and/or worsening symptoms Assessment & Plan (03/16/2023 5:06 PM EST): Symptoms have been persistent. Tried to come off PPI but significant symptoms. Previous PCP ordered hpylori but advised may be false testing due to being on PPI and patient unable to come off. Tried to get in with GI in [place] but next appointment October. Referral placed to [facility] and phone # provided for patient Assessment & Plan (11/10/2022 10:10 AM EDT): Very symptomatic for almosta Decade Will recheck H pilory referal given to GI Female fertility problem 11/10/2022 Assessment & Plan (12/18/2024 8:49 AM EDT): Working through IVF Assessment & Plan (09/14/2023 11:55 AM EDT): Following with specialist now through [place], plans for another round of IVF 10/2023 if feeling well Assessment & Plan (07/20/2023 5:03 PM EDT): Following with fertility clinic, undergoing IVF Assessment & Plan (03/16/2023 5:07 PM EST): Ongoing x 5 1/2 years. Has worked with multiple fertility clinics, most recent in [place]. On multiple oral agents including Plaquenil to help support. (encourage eye exam every year). Also requires Vitamin D and TSH to be certain levels to help support IVF, requesting to order/check these labs today Assessment & Plan (11/10/2022 10:15 AM EDT): Seeing a fertility specialist in [place] On thyroid replacement to keep TSH <2 Migraine with aura 11/10/2022 Overview (11/10/2022): Bupivacaine q 4 weeks nerve blocks in [place] since 2016 Assessment & Plan (12/18/2024 8:51 AM EDT): Managed on current regimen of medications Assessment & Plan (12/14/2023 8:55 AM EDT): Managed on current regimen/medications Assessment & Plan (03/16/2023 5:05 PM EST): Follows with Dr. Jaramillo through [facility] neurology. Does Bupivacaine nerve blocks every four weeks with management of symptoms Undifferentiated connective tissue disease 11/10 Overview (11/10/2022): Will need to review rheumatology notes Is on plaquenil since June 2022 Annual physical exam 11/10/2022 Assessment & Plan (12/18/2024 8:50 AM EDT): UTD with optho/dentist. Immunizations and preventive care reviewed. Fasting labs ordered today. Encourage healthy diet/regular exercise. Plan for CPE in one year, aware to follow-up sooner if needed Assessment & Plan (12/14/2023 8:54 AM EDT): UTD with optho/dentist. Immunizations and preventive care reviewed. Fasting labs done 12/2020- ordered today. Encourage healthy diet/regular exercise. Plan for CPE in one year, aware to follow-up sooner if needed Endometriosis 08/23/2021 03/16/2023 Overview (03/16/2023): Lap dx- 09/05- see path reports. Assessment & Plan (03/16/2023 5:08 PM EST): Underwent endometrial fulguration 08/2021 Mild intermittent asthma without complication 03/16/2023 Overview (03/16/2023): Medications: Fluticasone MDI: 2 puffs 2 times a day Albuterol MDI: 1-2 puffs q.4 hours prn Last Assessment & Plan: RF per orders. Medications: Fluticasone MDI: 2 puffs 2 times a day Albuterol MDI: 1-2 puffs q.4 hours prn Last Assessment & Plan: RF per orders. Assessment & Plan (12/18/2024 8:47 AM EDT): Well managed, has albuterol inhaler to use as needed, using sparingly. Is , refill sent. Will consider flu & PNA vaccine in the future Assessment & Plan (12/14/2023 8:52 AM EDT): Feels well managed. Has inhaler to use as needed. Will get updated covid/flu vaccine when available, encourage to do PCV 20 in the future as well Assessment & Plan (08/11/2023 4:08 PM EDT): Some mild wheezing but lungs CTA today and O2 sat normal. Has Flovent to use as needed, requesting refill. Updated to Pulmicort as Flovent no longer covered/available. Can also use Albuterol as needed Assessment & Plan (03/16/2023 5:05 PM EST): Has proair inhaler to use as needed. Primarily triggered by colds, continues to wear a mask to help prevent. Flu/covid booster utd, will get PCV 20 Resolved Problems Problem Noted Date Diagnosed Date Resolved Date Itching 07/18/2024 12/18/2024 Assessment & Plan (07/18/2024 12:12 PM EDT): Primarily right groin and some vulva itching. No overt abnormalities on exam. Wet mount obtained and will follow-up with results. RX sent for Miconazole to use twice a day as needed as can use on groin and vulva. Keep area clean/dry. Aware to follow-up if no improvement and/or worsening symptoms Acute cough 08/11/2023 09/14/2023 Assessment & Plan (08/11/2023 4:07 PM EDT): Present x 4 days with nasal congestion/sinus pressure. Hoarseness. No fevers and history of tonsillectomy, no need for throat swab. Quad swab obtained to rule out underlying illness. Encourage supportive care with hydration/steam/humidification/gargling with salt water. Will give Tessalon perles to use as needed. If no improvement in next 24-48 hours, will do Z-jj (prescription provided). Take with food to avoid GI upset. Aware to follow-up if no improvement and/or worsening symptoms Rash and other nonspecific skin eruption 08/07/2023 12/18/2024 Assessment & Plan (10/21/2024 5:38 PM EDT): Current area of concern is inner right thigh fold, appears consistent with eczema more than candidiasis. Offered a biopsy though I do not think it is necessary, she will try a topical steroid cream (the one she had used in the past when she had hives) if not improved would do a skin biopsy they would have to stop the steroid for 4 weeks prior to any such biopsy Assessment & Plan (12/14/2023 8:53 AM EDT): Has since resolved. Seeing sales office assistant, next visit 12/2023, on anti-histamine daily Assessment & Plan (09/14/2023 11:56 AM EDT): With significant improvement/resolution, unsure if allergy related. Is scheduled with sales office assistant 09/26/23. Requesting to repeat sed rate/CRP to ensure normal at this time. Will follow-up with dermatology as needed. Requesting refill of triamcinolone as uses as needed with improvement Assessment & Plan (08/11/2023 4:09 PM EDT): Question of viral rash as appeared before illness. Saw dermatology with no clear cause. Is using a topical steroid to areas as needed with improvement. Will continue to monitor and if rash returns and/or worsens will need to consider further intervention. Will also refer to allergy as will likely be helpful in the future, referral entered Assessment & Plan (08/07/2023 12:49 PM EDT): Unclear etiology, has been persistent despite medrol Dosepak. No new products/lotions. present for visit and he has no rashes. Took Benadryl at night with some improvement in itching. Will place referral to dermatology but ultimately may need to see allergy. Continue with Zyrtec/Pepcid and complete medrol dose jj. Will also check basic blood labs to ensure normal (no elevated WBC/inflammatory markers) as concerned for an underlying autoimmune condition. Will also give a topical steroid to use to affected areas twice a day as needed. Advised to follow-up if no improvement and/or worsening symptoms Cervical radiculopathy 08/04/202312/18 Assessment & Plan (09/14/2023 11:55 AM EDT): Has MRI scheduled 09/2023. Will confirm with/without contrast and send message to patient via portal Assessment & Plan (08/04/2023 8:55 AM EDT): Appears more cervical. Has been attending PT since with no significant improvement. MRI cervical spine ordered and will follow-up with results. Encourage to continue with supportive care of stretching/heat Low back pain radiating to r ight lower extremity 07/31/2023 12/18/2024 Assessment & Plan (07/31/2023 2:15 PM EDT): Likely combination of SI joint and lumbar radiculopathy. Pain has improved/resolved with home management. Continues to wear SI belt which has helped a lot. Continue with supportive care. Is agreeable to start PT, has been seeing for upper back/neck (will schedule another visit to discuss that). Order entered and referral provided for patient. Discussed red flag symptoms and follow-up if any new/worsening symptoms, expresses understanding Screening for cervical cancer 07/20/2023 12/18/2024 Assessment & Plan (12/14/2023 8:54 AM EDT): Pap smear done 07/2023, would be interested in seeing [employer] ENGINEER and referral entered Assessment & Plan (07/20/2023 5:02 PM EDT): Pap smear obtained today. Normal exam. Will follow-up with results once received. If negative/HPV negative, can repeat in five years. Follow-up if any pain/abnormal bleeding occurs, can avoid intercourse for 24 hours Asthma 11/10/2022 03/16/2023 Assessment & Plan (11/10/2022 10:10 AM EDT): ASTHMA: The patient has a history of asthma, without any evidence of an exacerbation at this time. Currently the patient reports symptoms that are intermittent, with symptoms no more than twice weekly. At this time will continue with the current therapy of as needed albuterol. Hair loss 11/10/2022 12/18/2024 Assessment & Plan (03/16/2023 5:07 PM EST): IVF clinic advised r/t hormones/IVF Encounters Date Type Department Care Team Description 12/18/2024 8:46 AM EDT - 12/18/2024 11:59 PM EDT Hospital Encounter [facility] [address] [place] [address] Christopher Carson CNP Discharge Disposition: Home or Self Care 12/18/2024 8:00 AM EDT Office Visit [facility] [address] [place] [address] Christopher Carson CNP Annual physical exam (Primary Dx); Family history of breast cancer; Mild intermittent asthma without complication; Iron deficiency; PCOS (polycystic ovarian syndrome); SI (sacroiliac) joint dysfunction; Encounter for screening mammogram for malignant neoplasm of breast; Vitamin D deficiency; Gastroesophageal reflux disease without esophagitis; Female fertility problem; Hives; Screening for hyperlipidemia; Intractable migraine with aura without status migrainosus 12/03/2024 2:30 PM EDT Infusion [facility] [address] [place] [phone] Dixie Carson PA-C Iron deficiency (Primary Dx) 11/25/2024 9:17 AM EDT - 11/25/2024 11:59 PM EDT Hospital Encounter [facility] [address] [place] [address] Gayathri Meyer MD Discharge Disposition: Home or Self Care 11/19/2024 8:04 AM EDT - 11/19/2024 11:59 PM EDT Hospital Encounter [facility] [address] [place] [phone] Gayathri Meyer MD Discharge Disposition: Home or Self Care 11/06/2024 7:57 AM EDT - 11/06/2024 11:59 PM EDT Hospital Encounter [facility] [address] [place] [phone] Gayathri Meyer MD Discharge Disposition: Home or Self Care 11/04/2024 7:59 AM EDT - 11/04/2024 11:59 PM EDT Hospital Encounter [facility] [address] [place] [phone] Gayathri Meyer MD Discharge Disposition: Home or Self Care 11/04/2024 Transcribe Orders [facility] [address] [place] [phone] Gayathri Meyer MD test-positive (Primary Dx) 11/02/2024 8:42 AM EDT - 11/02/2024 11:59 PM EDT Hospital Encounter [facility] [address] [place] [address] Gayathri Meyer MD Discharge Disposition: Home or Self Care 11/02/2024 Transcribe Orders [facility] [address] [place] [id number] Gayathri Meyer MD examination or test, positive result (Primary Dx) 10/31/2024 7:20 AM EDT - 10/31/2024 11:59 PM EDT Hospital Encounter [facility] [address] [place] [address] Gayathri Meyer MD Discharge Disposition: Home or Self Care 10/23/2024 1:00 PM EDT Office Visit [facility] at [address] [address] Dixie Carson PA-C Iron deficiency anemia, unspecified iron deficiency anemia type (Primary Dx) 10/21/2024 11:40 AM EDT Office Visit [facility] [address] [place] [address] [place] [address] Muna Wilkerson MD Rash and other nonspecific skin eruption from Last 3 Months Immunizations Immunization Administration Dates Next Due COVID-19 (Pre-02/06) Moderna Vaccine, mRNA, PF 02/05/2021,07/25/2020,06/26/2020 COVID-19 (Pre-02/06) Pfizer Vaccine, Bivalent 12+ 12/31/2021 Hepatitis B 04/17/2000 Influenza Quadrivalent MDCK Preservative Free IM 02/14/2023,01/07/2022,02/02/2021,2019,01/23/2018,01/05/2017 Influenza Quadrivalent MDCK w/Preservative IM 01/26/2019 Influenza Trivalent MDCK Pre servative Free IM 02/09/2024 Influenza, Unspecified Formulation 02/14,01/23/2018,01/15/2017,2015,12/16/2014,12/16/2012 Tdap 01/29/2016,04/18/2006 Family History Medical History Relation Comments Hyperlipidemia Father Hypertension Father Breast cancer Mother DCIS, BRCA neg Hyperlipidemia Mother Hypertension Mother Relation Status Comments Brother Father Alive Mother Alive Sister Social History Tobacco Use Types Packs/Day Years Used Date Smoking Tobacco: Never Smokeless Tobacco: Never Tobacco Cessation:Counseling Given: Not Answered Alcohol Use Standard Drinks/Week Comments Never 0 [...] high school, GED, job training, learning the [place] language, technical skills, or developing parenting skills)? [...] Orientation Straight 09/01/2022 10 :28 AM EDT Last Filed Vital Signs Vital Sign Reading Time Taken Comments Blood Pressure 118/60 12/18/2024 8:04 AM EDT Pulse 83 12/18/2024 8:04 AM EDT Temperature 36.5 C (97.7 F) 12/18/2024 8:04 AM EDT Respiratory Rate 16 12/03/2024 3:57 PM EDT Oxygen Saturation 99% 12/18/2024 8:04 AM EDT Inhaled Oxygen Concentration - - Weight 69.3 kg (152 lb 12.8 oz) 12/18/2024 8:04 AM EDT Height 160 cm (5' 3 ) 10/23/2024 12:46 PM EDT Body Mass Index 27.07 10/23/2024 12:46 PM EDT Plan of Treatment Upcoming Encounters Date Type Department Care Team (Late st Contact Info) Description 12/18/2024 Procedure Pass [address] [id number] 01/21/2025 8:30 AM EDT Telemedicine [facility] at [address] [address] Dixie Carson PA-C [address] [place] [email or web address] 08/05/2025 7:45 AM EDT Appointment [address] [address] Christopher Carson, CMM PROGRAMMER [address] [place] [phone] 12/24/2025 8:00 AM EDT Office Visit [address] [address] Christopher Carson, LIA [address] [place] [phone] [email or web address] Health Maintenance Due Date Last Done Comments PNEUMOCOCCAL VACCINES (0-49 years) (1 of 2 - PCV) 07/01/2007 INFLUENZA VACCINE (#1) 2024 , 02/14/2023, 02/14/2023, Additional history exists TSH LEVEL 02/11/2025 02/12/2024, 052 08/2023, 04/24/2023, Additional history exists CREATININE LEVEL 12/18/2025 12/18/2024, , 04/24/2023 DEPRESSION SCREENING 12/18/2025 12/18/2024, 12/19/19 25 Adult Td,Tdap Booster 01/28/2026 01/29/2016, 007 PAP SMEAR 07/19/2026 07/20/2023, 06/25/2014 SCREENING FOR DIABETES 12/19/2027 12/18/2024, 2023 COVID-19 VACCINE Completed 01/12/2024, , 12/31/2021, Additional history exists HEPATITIS C SCREENING Completed 07/17/2024, 024 HIV ONE-TIME SCREENING (18-65 YEARS) Completed 07/17/2024 SMOKING STATUS SCREENING (Once After 26 Yrs) Completed 12/18/2024 HEPATITIS A VACCINES Aged Out No long er eligible based on patient's age to complete this topic HIB VACCINES Aged Out No longer eligi ble based on patient's age to complete this topic MENINGOCOCCAL VACCINES (ACWY) Aged Out No longer eligible based on patient's age to complete this topic MENINGOCOCCAL VACCINES (B) Aged Out N o longer eligible based on patient's age to complete this topic Medical Devices Not on file Procedures Procedure Name Priority Date/Time Associated Diagnosis Comments COMPREHENSIVE METABOLIC PANEL Routine 12/18/2024 8:46 AM EDT Iron deficiency PCOS (polycystic ovarian syndrome) Annual physical exam Gastroesophageal reflux disease without esophagitis MAGNESIUM Routine 12/18/2024 8:46 AM EDT Gastroesophageal reflux disease without esophagitis 25-OH VITAMIN D Routine 12/18/2024 8:46 AM EDT Vitamin D deficiency LIPID PANEL Routine 12/18/2024 8:46 AM EDT Screening for hyperlipidemia PROGESTERONE Routine 11/25/2024 9:25 AM EDT examination or test, positive result ESTRADIOL Routine 11/25/2024 9:25 AM EDT examination or test, positive result HCG (QUANTITATIVE, BLOOD) Routine 11/25/2024 9:25 AM EDT examination or test, positive result ESTRADIOL Routine 11/19/2024 8:10 AM EDT Iron deficiency Itching Family history of breast cancer Right hip pain Screening for hyperlipidemia Rash and other nonspecific skin eruption Cervical radiculopathy Hives SI (sacroiliac) joint dysfunction Low back pain radiating to right lower extremity Screening for cervical cancer Mild intermittent asthma without complication Endometriosis Annual physical exam Hair loss Undifferentiated connective tissue disease Intractable migraine with aura without status migrainosus Female fertility problem Gastroesophageal reflux disease without esophagitis PCOS (polycystic ovarian syndrome) PROGESTERONE Routine 11/19/2024 8:10 AM EDT Iron deficiency Itching Family history of breast cancer Right hip pain Screening for hyperlipidemia Rash and other nonspecific skin eruption Cervical radiculopathy Hives SI (sacroiliac) joint dysfunction Low back pain radiating to right lower extremity Screening for cervical cancer Mild intermittent asthma without complication Endometriosis Annual physical exam Hair loss Undifferentiated connective tissue disease Intractable migraine with aura without status migrainosus Female fertility problem Gastroesophageal reflux disease without esophagitis PCOS (polycystic ovarian syndrome) ESTRADIOL STAT 11/06/2024 8:07 AM EDT test-positive LH STAT 11/06/2024 8:07 AM EDT test-positive LH STAT 11/04/2024 8:17 AM EDT test-positive ESTRADIOL STAT 11/04/2024 8:17 AM EDT test-positive ESTRADIOL Routine 11/02/2024 8:53 AM EDT examination or test, positive result LH Routine 11/02/2024 8:53 AM EDT examination or test, positive result ESTRADIOL Routine 10/31/2024 7:41 AM EDT Female fertility problem PCOS (polycystic ovarian syndrome) LH Routine 10/31/2024 7:41 AM EDT Female fertility problem PCOS (polycystic ovarian syndrome) HEPATITIS C ANTIBODY, QUALITATIVE Routine 07/17/2024 8:00 AM EDT Female infertility Unspecified procreative management TSH WITH REFLEX Routine 02/12/2024 7:34 AM EDT Abnormal uterine bleeding (AUB) PAP TEST Routine 07/20/2023 12:00 AM EDT from Last 3 Months or Most Recently Relevant to Health Maintenance Results * Comprehensive metabolic panel (12/18/2024 8:46 AM EDT) SODIUM 137 133 - 146 mmol/L [facility] POTASSIUM 3.9 3.3 - 5.1 mmol/L [facility] CHLORIDE 102 96 - 108 mmol/L [facility] CO2 27 21 - 35 mmol/L [facility] BUN 7 6 - 19 mg/dL [facility] CREATININE 0.50 0.5 - 1.5 mg/dL [facility] GLUCOSE 85 70 - 99 mg/dL [facility] ALBUMIN 4.0 3.9 - 4.8 g/dL [facility] TOTAL PROTEIN 7.5 6.5 - 8.0 g/dL [facility] CALCIUM 9.2 8.4 - 10.3 mg/dL [facility] ALKALINE PHOSPHATASE 60 39 - 117 U/L [facility] TOTAL BILIRUBIN 0.3 0.0 - 1.2 mg/dL [facility] AST 18 0 - 37 U/L [facility] ALT 14 0 - 40 U/L [facility] GLOBULIN 3.5 1 - 4.8 g/dL [facility] EGFR >120 >59 mL/min/1.7 3m2 [facility] Comment:Estimated glomerular filtration rate calculated using the CKD-EPI refit equation. ANION GAP 12 10 - 20 mmol/L [facility] Blood 12/18/2024 8:46 AM EDT 12/18/2024 8:51 AM EDT Christopher Carson [facility] LAB BLOOD ORDERABLES Final Result [address] [address] * 25-OH vitamin D (12/18/2024 8:46 AM EDT) 25 [place] VIT D (TOTAL) 57 30 - 60 ng/mL [facility] Blood 12/18/2024 8:46 AM EDT 12/18/2024 8:51 AM EDT Christopher Carson [facility] LAB BLOOD ORDERABLES Final Result Performing Organization Address [facility]/ZIP Co de Phone Number [address] [address] * Magnesium (12/18/2024 8:46 AM EDT) MAGNESIUM 2.2 1.6 - 2.6 mg/dL [facility] Blood 12/18/2024 8:46 AM EDT 12/18/2024 8:51 AM EDT Christopher Carson [facility] LAB BLOOD ORDERABLES Final Result Performing Organization Address [facility]/ZIP Co de Phone Number [address] [address] * (ABNORMAL) Lipid panel (12/18/2024 8:46 AM EDT) HDL 59 mg/dL [facility] Comment: Interpretation <40 mg/dL: Low HDL cholesterol (major risk factor for CHD) Greater than or equal to 60 mg/dL: High HDL cholesterol ( negative risk factor for CHD) HDL - cholesterol is affected by a number of factors, e.g. smoking, excerise, hormones, sex and age. CHOLESTEROL 226 0 - 240 mg/dL [facility] TRIGLYCERIDES 131 30 - 160 mg/dL [facility] LDL 141(H) 50 - 129 mg/dL [facility] Comment: LDL levels in terms of risk for coronary heart disease: <100 mg/dL: Optimal 100-129 mg/dL: Near or above optimal 130-159 mg/dL: Borderline high 160-189 mg/dL: High >190 mg/dL: Very High CARDIAC RISK RATIO 3.8 3.3 - 4.4 C [facility] Blood 12/18/2024 8:46 AM EDT 12/18/2024 8:50 AM EDT us Christopher Carson CNP LAB BLOOD ORDERABLES Final Result Performing Organization Address City/[facility] Co de Phone Number [address] [address] * Progesterone (11/25/2024 9:25 AM EDT) Only the most recent of2 resultswithin the time period is included. PROGESTERONE 27.60 ng/mL [facility] Comment: FEMALE: Follicular: 0.057 - 0.893 ng/ml Luteal: 1.83 - 23.9 ng/ml Blood 11/25/2024 9:25 AM EDT 11/25/2024 9:28 AM EDT us Gayathri Meyer MD LAB BLOOD ORDERABLES Final Resu lt Performing Organization Address [facility] Co de Phone Number [address] [address] * Estradiol (11/25/2024 9:25 AM EDT) Only the most recent of6 resultswithin the time period is included. ESTRADIOL 152 pg/mL [facility] Comment: FEMALE: Follicular: Less than 12 to 233 pg/ml Midcycle: 41 - 398 pg/ml Luteal: 22 - 341 pg/ml Postmenopausal: less than 5 - 138 pg/ml Blood 11/25/2024 9:25 AM EDT 11/25/2024 9:28 AM EDT Gayathri Meyer MD LAB BLOOD ORDERABLES Final Resu lt Performing Organization Address [facility] Co de Phone Number [address] [address] * HCG (Quantitative, Blood) (11/25/2024 9:25 AM EDT) HCG BETA 0.2 mIU/mL [facility] Comment: Interpretation: FEMALE: Negative: Less than or equal to 1 mIU/mL. 4 Weeks Post Conception: 9.5 - 750 mIU/mL. 12 Weeks Post Conception: [address] - 925965 mIU/mL. Test Methodology [employer] e801 Patient results determined by assays using different manufacturers or methods may not be comparable. Blood 11/25/2024 9:25 AM EDT 11/25/2024 9:28 AM EDT Gayathri Meyer MD LAB BLOOD ORDERABLES Final Resu lt Performing Organization Address [facility] Co de Phone Number [address] [address] * LH (11/06/2024 8:07 AM EDT) Only the most recent of4 resultswithin the time period is included. LH 1.7 IU/L [facility] Comment: Interpretation: FEMALE: Follicular: 2.4 - 12.6 mIU/ml Ovulate: 4.0 - 99.6 mIU/ml Luteal: 1.0 - 11.4 mIU/ml Postmenopausal: 7.7 - 58.5 mIU/ml Blood 11/06/2024 8:07 AM EDT 11/06/2024 8:09 AM EDT us Gayathri Meyer MD LAB BLOOD ORDERABLES Final Resu lt Performing Organization Address [facility]/ZIP Co de Phone Number [address] [address] * Hepatitis C antibody, qualitative (07/17/2024 8:00 AM EDT) HCV NON-REACTIV E NON-REACTI VE [facility] Blood 07/17/2024 8:00 AM EDT 07/17/2024 8:07 AM EDT us Mirna Rosario MD LAB BLOOD ORDERABLES Final Result Performing Organization Address [facility] Co de Phone Number [address] [address] * TSH with reflex (02/12/2024 7:34 AM EDT) TSH 1.77 0.27 - 4.20 uIU/mL [facility] Blood 02/12/2024 7:34 AM EDT 02/12/2024 7:38 AM EDT us Jersey Garza MD LAB BLOOD ORDERABLES Fin al Result Performing Organization Address [facility] Co de Phone Number [address] [address] * Pap Test (07/20/2023 12:00 AM EDT) 07/20/2023 07/24/2023 9:1 8 AM EDT Narrative SEE NARRATIVE - 07/28/2023 11:33 AM EDT [address] [address] Claims Supervisor: Jade Talavera MD WINDOWS [employer] ENGINEER Cytology Report FINAL DIAGNOSIS A. PAP SMEAR (SUREPATH) CE: SPECIMEN ADEQUACY: Satisfactory for evaluation; transformation zone present. INTERPRETATION: NEGATIVE FOR INTRAEPITHELIAL LESION OR MALIGNANCY. Electronically Signed Out By: TIMMY Kelley(ASCP) The Pap test is a screening test primarily for squamous cancers and precursors and has associated false-negative and false-positive results. New technologies such as liquid-based preparations may decrease but will not eliminate all false-negative results. Regular sampling and follow-up of unexplained clinical signs and symptoms are recommended to minimize false negative results. PROCEDURES/ADDENDA HPV Testing (Requested) Ordered Date: 07/24/2023 A. PAP SMEAR (SUREPATH) CE: Human Papilloma Virus Test NEGATIVE for high-risk Human Papilloma Virus types 16, 18, 45 and the Other high risk probe set (Includes 31, 33, 35, 39, 51, 52, 56, 58, 59, 66, 68) Note: Testing performed by [employer] HR-HPV analysis. Clinical correlation is advised. This HPV test was performed at [facility], [address] [place] [address]. This test has been FDA approved for both SurePath and ThinPrep cervical cytology specimens. The accuracy and precision of this test for all other specimen sources has been verified in the Cytopathology Laboratory of the [facility] and has not been cleared or approved by the U.S. Food and Drug Administration. Clinical correlation is advised. CLINICAL HISTORY Date of Last Menstrual Period: 06-29-2022 Other Clinical Conditions: Screening Pap SPECIMEN SOURCE A: PAP SMEAR (SUREPATH) CE Patient Name: BINA COMBS : 1990 (Age: 33) Sex: F Institution: [facility] Location: [facility] Date of Collection: 07/20/2023 Date of Reported: 07/28/2023 11:33 Results to: Christopher Carson TALENT ASSISTANT Christopher Carson CMM PROGRAMMER CYTOLOGY ORDERABLES Final Result SEE NARRATIVE from Last 3 Months or Most Recently Relevant to Health Maintenance Insurance [employer] [place] PPO EPO Care Teams Registered Nurse Float Pool Relationship Specialty Start Date End Date Christopher Carson CNP [address] [place] [address] [place] [address] [email or web address] PCP - [facility] Medicine 03/16/23 Mirna Rosario MD [address] [address] Obstetrics and Gynecology 10/03/23 Tamar Herron RN [address] [place] [phone] [email or web address] Registered Nurse 10/03/23 Dixie Carson, PAZoieC [address] [place] [email or web address] Physician Clinical Molecular Geneticist Physician Clinical Molecular Geneticist 10/17/24 Additional Source Comments The information contained in this document represents components of the legal health record. It is not the complete legal health record.[facility]
--- OUTSIDE RECORDS SUMMARY | 2024-12-24 08:33 | XMS_ITS | Encounter Summary ---
Author Organization [facility] Address [address] [place] [address] [place] [phone] Phone Care Team Providers Care Pet Crematory Worker Name Role Phone Christopher Jones CNP Primary Care Provider [phone] Mirna Rosario MD Unavailable [phone] Tamar Herron RN Unavailable [email or web address] Dixie Jones PA-C Unavailable [phone] Encounter Details Date Type Department Care Team (Late st Contact Info) Description 08/04/2023 Procedure Pass [address] [place] [address] Social History Tobacco Use Types Packs/Day Years [...] st Contact Info) Description 12/18/2024 Procedure Pass [address] [address] 01/21/2025 8:30 AM EDT Telemedicine [facility] at [address] [address] Dixie Jones PA-C [address] [place] [address] 08/05/2025 7:45 AM EDT Appointment [address] [address] Christopher Jones CNP [address] [place] [phone] [email or web address] 12/24/2025 8:00 AM EDT Office Visit [address] [address] Christopher Jones CNP [address] [place] [phone] documented as of this encounter Visit Diagnoses Not on filedocumented in this encounter Additional Health Concerns Infection Onset Date Last Indicated Resolved Time CoV-Risk 08/11/2023 08/11/2023 08/22/2023 1:22 AM EDT documented as of this encounter Care Teams Pet Crematory Worker Relationship Specialty Start Date End Date Christopher Jones CNP [address] [place] [address] PCP - General Family Medicine 03/16/23 Mirna Rosario MD [address] [facility] [address] [place] [address] [email or web address] Obstetrics and Gynecology 10/03/23 Tamar Herron RN [address] [place] [phone] [email or web address] Registered Nurse 10/03/23 Dixie Jones, SACHI [address] [place] [phone] [email or web address] Physician [employer]o [employer] Founder Physician [employer] Founder 10/17/24 documented as of this encounter Additional Source Comments The information contained in this document represents components of the legal health record. It is not the complete legal health record.[facility]
== END 2024-12-24 08:57 | disposition home or self-care (01) ==
LOC: HO.HSM 08:02
PROVIDERS: Visit Provider Nurse Practitioner
DX: F45.8 Other somatoform disorders (principal); G43.109 Migraine with aura, not intractable, without status migrainosus; G43.909 Migraine, unspecified, not intractable, without status migrainosus; M54.81 Occipital neuralgia
CPT/HCPCS: 20552; 64405; 99214

== ENCOUNTER → 2024-12-24 08:01 | Outpatient (BNVA) | payer BC, SELFPAY | PROVIDERS: Visit Provider Nurse Practitioner | DX: Z76.89 Persons encountering health services in other specified circumstances (principal); G43.909 Migraine, unspecified, not intractable, without status migrainosus; M54.81 Occipital neuralgia | CPT/HCPCS: 20552; 64405; J0665 ==

== ENCOUNTER 2025-01-23 08:02 | Outpatient (AMB) | payer BC, SELFPAY ==
--- NOTE | 2025-01-23 08:04 | A.OFFVIS_ITS ---
Vital Signs 01/23/25 08:16 Height 5 ft 3 in Weight 147 lb BMI 26.0 BP 122/88 Blood Pressure Location Rt brachial Position Sitting Respiration 16 Pulse 83 Pulse Oximetry (%) 98 Oxygen Delivery Method Room Air Intake Visit Reasons: NERVE BLOCK Accompanied by: Spouse Allergies Penicillins Allergy (Unknown, Verified 01/23/25 08:17) rash HPI Comments Details: Main is a 34-year-old female patient with a past medical history of asthma and PCOS presenting to the clinic today for occipital nerve blocks and trigger point injections. Per previously documented HPI: Going back many years, Main being having headaches around age 9 at the time of her menses onset. When her migraines 1st began, they were predominantly located on the right side of her head though in college headaches worsened and became more left-sided dominant. She also has a history of bruxism which has li yamileth contributed to her headaches overall. Currently, headaches are still left-sided dominant though do still occur at times on the right. Headache locations are typically to the temporal areas and occipital areas. She is currently averaging approximately 5 migraines per month lasting 2-6 hours. The sooner she takes an abortive medication the shorter duration of headache. She experiences visual auras with approximately 25% of her migraines are less. 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 This has occurred 3 times in her lifetime that she is aware of. Most of her migraines are accompanied by nausea, difficulty concentrating, light and sound sensitivity, fatigue, and occasionally a droopy left eye. When she does have a migraine, she takes Nurtec 75 mg which works well at approximately 75% efficacy. She has tried Ubrelvy in the past which did work b ronal although has been difficult to obtain due to insurance preferred agents. She started occipital nerve blocks and temporal trigger point injections approximately 8 years ago. For some time, she was also doing a left auricular temporal nerve block however she feels that over the course of last few years her bruxism has improved some and we have not been performing left auricular temporal nerve blocks over the past year or so. She does continue to do well with the nerve blocks and trigger point injections and previously with attempts to reduce the frequency at which she was getting the injections, she had an uptake in her migraines. She is currently getting them once per month with good headache control . She updates me today on how she has been doing over the course of the last month and notes that she has had more frequent migraines this month (about 3 per week). She is still using and responding well to the nurtec. Her migraines have all been left sided which is her typical and she has not had any changes to the features of her headaches. [facility] Medical History (Updated 12/24/24 @ 09:06 by Agueda Mai CNP) Migraine Review of Systems Const All systems reviewed & are unremarkable except as noted in HPI and below Physical Exam Vital Signs: Last Vital Signs Pulse 83 01/23/25 08:16 Resp 16 01/23/25 08:16 BP 122/88 01/23/25 08:16 Pulse Ox 98 01/23/25 08:16 Oxygen Delivery Method Room Air 01/23/25 08:16 BMI result Body Mass Index 26.0 Const General: cooperative, healthy appearing, comfortable and no acute distress Orientation/consciousness: patient oriented x3 Limitations: no limitations HEENT Head: Yes normal to inspection and Yes scalp tenderness (Bilateral occipital notch tenderness and left temporal tenderness) Teeth and gingiva: dentition normal Eyes General: appearance normal, both eyes and all related structures Pupils: Equal, round and reactive pupils present Neuro General: patient oriented x3, moves all extremities, normal sensation to monofilament and deep tendon reflexes 2+ bilaterally Cranial nerves: Yes CN's II-XII intact bilaterally and Yes Equal, round and reactive pupils present Cognition (Neuro): normal cognition Gait exam (Neuro): Normal gait present Motor exam (neuro): 5/5 motor strength present throughout, Pronator motor function not present and no tremor noted Sensory Exam: double simultaneous stimulation for sensation normal Coordination: [id number] test normal Office Procedures Nerve Block Details: Bilateral Greater Occipital Nerve block procedure: Laterally: Bilateral Indications: Occipital neuralgia Current allergies and current list of medications were reviewed prior to procedure, verbal consent was obtained, procedure was explained in detail to the patient prior to starting. Time-out was performed prior to procedure. Following universal hygiene protocols, patient's left occipital area was located by drawing a line between the external occipital protuberance and the mastoid process. The greater occipital nerve was located approximately 2/3 along this electrical linesworker to the occiput, and corresponded with the point of maximum tenderness. Alcohol was applied topically to the skin. A 27 gauge needle (aspirating during insertion) was inserted at a 45 degree angle until just above the periosteum. The providers selected agent (s)/medications (as documented in this note) were injected on the left side (directing needle to center, left and right of painful focus any fanning technique). Pressure with gauze pad was held briefly upon the site of puncture to minimize bleeding and to further spread anesthetic subcutaneously. The procedure was repeated on the right side. The patient was monitored for 15 minutes after the procedure and no complications were observed. Post procedure care was reviewed with the patient including application of ice intermittently to the injection sites over the course of the day to reduce inflammation. CPT: 95928-Juwtbjm Occipital Procedure code (CPT) selection complete Therapeutic Injection Therapeutic Injection Details: Trigger point injection procedure: Laterally:Left Indications: Chronic headaches, myofascial pain Following universal hygiene protocol, after explaining the risks and benefits as well as hazards of the procedure to the patient, consent was signed and placed in the chart. Time-out prior to starting the procedure was performed. The areas over the left temporal muscle were cleansed with alcohol. 5 Sites in the left temporalis muscle injected with a 27 gauge 1.5 in needle with myofascial spasm. Patient tolerated the procedure well, localized bleeding was controlled. Patient monitored in the clinic for 15 minutes for complications. Patient was discharged home with instructions to apply ice to the back of their head as needed. 150[address]-[place] Point Injection 3 or more All charges added?: Procedure code (CPT) selection complete Office Meds bupivacaine (PF) 0.5 % (5 mg/mL) injection solution Performing Provider: Agueda Mai CNP Performing Location: [facility] Administered by: Agueda Mai CNP on 01/23/25 08:30 Dose Route Admin Location Dispensed Lot Number Expiration Date [facility] [employer] 6 mL Infiltration 10 mL [id number] [employer] Total Dispensed Waste 10 mL 40 % bupivacaine (PF) 0.5 % (5 mg/mL) injection solution Performing Provider: Agueda Mai CNP Performing Location: [facility] Administered by: Agueda Mai CNP on 01/23/25 08:31 Dose Route Admin Location Dispensed Lot Number Expiration Date [facility] [employer] 1.5 mL Infiltration 10 mL [id number] [employer] Total Dispensed Waste 10 mL 85 % Assessment & Plan Assessment & Plan (1) Bruxism (teeth grinding): Code(s): F45.8 - Other somatoform disorders Category: Medical Plan: . (2) Bilateral occipital neuralgia: Code(s): M54.81 - Occipital neuralgia Category: Medical Plan: . (3) Migraine with aura and without status migrainosus, not intractable: Code(s): G43.109 - Migraine with aura, not intractable, without status migrainosus Category: Medical Plan: . Plan Main is a 34-year-old female patient with a past medical history of asthma and PCOS presenting to the clinic today for occipital nerve blocks and trigger point injections. She did have an increase in the frequency of her headaches since last visit. We did use the 0.25% bupivacaine with smaller amounts at last visit. Today, we used 0.5% bupivacaine in slightly larger volumes for the occipital nerve blocks. She did well with the procedure without any complications. She was discharged in baseline condition. She will return in 1 month for continued injections. She continues to use Nurtec for as-needed therapy which works well for her. She has refills on this medication at home. -occipital nerve block and left temporalis trigger point injections performed today -continue Nurtec for acute therapy at home a -follow up in 1 month or sooner if needed Orders: Orders AMB Trigger Point Injection Today G43.109 - Migraine with aura, not intractable, without status migrainosus, M54.81 - Occipital neuralgia AMB Nerve Block Today G43.109 - Migraine with aura, not intractable, without status migrainosus, M54.81 - Occipital neuralgia Coding Level of Care Code Est Pt Level 2 (83776) Diagnoses Bruxism (teeth grinding) F45.8 Bilateral occipital neuralgia M54.81 Migraine with aura and without status migrainosus, not intractable G43.109 CPT Codes Nerve Block - CPT: 75884-Shfpnzj Occipital ([id number]) Therapeutic Injection - Ther Injection 2: 17715-Olleryu Point Injection 3 or more ([id number])
[2025-01-23 08:16] VITALS: BP 122/88; PULSE 83; RESP 16; O2SAT 98; BMI 26.0
== END 2025-01-23 08:27 | disposition home or self-care (01) ==
LOC: HO.HSM 08:03
PROVIDERS: Visit Provider Nurse Practitioner
DX: M54.81 Occipital neuralgia (principal); G43.109 Migraine with aura, not intractable, without status migrainosus; F45.8 Other somatoform disorders
CPT/HCPCS: 20553; 64405

== ENCOUNTER → 2025-01-23 08:02 | Outpatient (BNVA) | payer BC, SELFPAY | PROVIDERS: Visit Provider Nurse Practitioner | DX: M54.81 Occipital neuralgia (principal); G43.109 Migraine with aura, not intractable, without status migrainosus; M79.18 Myalgia, other site | CPT/HCPCS: 20553; 64405; J0665 ==

== ENCOUNTER 2025-02-24 08:01 | Outpatient (AMB) | payer BC, SELFPAY ==
--- OUTSIDE RECORDS SUMMARY | 2025-02-23 23:59 | XMS_ITS | Continuity of Care Document ---
Author Organization [facility] Address [address] [facility], 3r d Floor, [address] [place] [address]- Care Team Providers Care Surgical Dressing Maker Name Role Phone Robert PALOMO, Christopher Rosa Primary Care Physician [place] [facility] [place](s): 10/26/24 - 02/23/25 [facility] [address], [address] [place] [address] Attending Physician: Lis Camara MD Admitting Physician: Lis Camara MD Referring Physician: Christopher Jones NP Encounter Type: Pre-OutPatient One Time Allergies, Adverse Reactions, Alerts Substance Criticality Severity Reaction Reaction Severity Status penicillin 1 Active 1rash Medications diazepam 2 mg oral tablet 2 mg, 1, tablet, By Mouth, Once, Take 1/2 hr before your scheduled MRI, # 1 tablet, Refills 0, Tot.Refills 0, Soft Stop, 07/09/24 8:26:00 AM EDT, Route to Pharmacy Electronically, [facility]/pharmacy #[id number],Partial fill upon patient request if the prescription is for a schedule II opioid drug., 160.02, cm, 07/09/24 7:59:00 EDT, Height, 70.45, kg, 11/09/23 8:40:00 EDT, Dry Weight Start Date: 07/09/24 Status: Ordered Medication Dispense Status: Completed Quantity: 1.0 Unit: tablet Total Allowed Fills: 1 Fills Dispensed: 0 lansoprazole 15 mg oral enteric coated capsule 1 capsule = 15 mg, By Mouth, Daily, 0 Refills, Maintenance, 12/14/22 2:38:00 PM EDT, Partial fill upon patient request if the prescription is for a schedule II opioid drug. Start Date: 12/14/22 Status: Ordered Medication Dispense Status: Completed Total Allowed Fills: 1 Fills Dispensed: 0 MetFORMIN (Eqv-Glucophage XR) 500 mg oral tablet, extended release 3 tablet = 1,500 mg, 0 Refills, Maintenance, 12/14/22 2:37:00 PM EDT, Partial fill upon patient request if the prescription is for a schedule II opioid drug. Start Date: 12/14/22 Status: Ordered Medication Dispense Status: Completed Total Allowed Fills: 1 Fills Dispensed: 0 ondansetron 4 mg oral tablet, disintegrating 1 tablet = 4 mg, By Mouth, Every 6 hours, PRN Nausea & Vomiting, # 12 tablet, 5 Refills, Acute 06/11/25 8:27:00 AM EST, 06/11/24 8:27:00 AM EST, Tablet, [facility]/pharmacy #[id number], Partial fill upon patient request if the prescription is for a schedule II opioid drug., 160.02, cm, 06/11/24 8:18:00 EST, Height, 70.45, kg, 11/09/23 8:40:00 EDT, Dry Weight Start Date: 06/11/24 Stop Date: 06/11/25 Status: Ordered Medication Dispense Status: Completed Quantity: 12.0 Unit: tablet Total Allowed Fills: 6 Fills Dispensed: 0 Synthroid 0.05 mg oral tablet 1 tablet = 50 mcg, By Mouth, Daily, # 30 tablet, 0 Refills, Maintenance, 12/14/22 2:39:00 PM EDT, Tablet, Partial fill upon patient request if the prescription is for a schedule II opioid drug. Start Date: 12/14/22 Status: Ordered Medication Dispense Status: Completed Quantity: 30.0 Unit: tablet Total Allowed Fills: 1 Fills Dispensed: 0 tiZANidine 2 mg oral tablet 2 mg, 1, tablet, By Mouth, Every 8 hours, PRN, # 30 tablet, Refills 4, Tot. Refills 4, Maintenance,as needed for muscle spasm, 12/19/23 7:48:00 AM EDT, Route to Pharmacy Electronically, [facility]/pharmacy #[id number], Partial fill upon patient request if the prescription is for a schedule II opioid drug., 160.02, cm, 12/19/23 7:06:00 EDT, Height, 70.45, kg, 11/09/23 8:40:00 EDT, Dry Weight Start Date: 12/19/23 Status: Ordered Medication Dispense Status: Completed Quantity: 30.0 Unit: tablet Total Allowed Fills: 5 Fills Dispensed: 0 Social History Social History Type Response Smoking Status Never (less than 100 in lifetime) entered on: 04/12/23 Sex Sex Representation Female (finding) Patient Care team information Care Team Personnel Name: Christopher Jones NP Position: S Associate Professional Member Role: PCP Address: [address] [place] [address] Telecom: Care Team Related Persons Name: CLAUDIA NAIR Insurance Providers Guarantor name: KAT Health Plan Information #: 1 Payer: BLUE [employer]OSS PPO Payer Identifier: KAT Member Number: [id number] Group Number: [id number] Subscriber Identifier: [id number] Relationship to Subscriber: spouse Coverage Type: NA Coverage Verification Date: NA Telecom: NA Address:
--- OUTSIDE RECORDS SUMMARY | 2025-02-24 08:06 | XMS_ITS | Clinical Summary ---
Author Organization [facility] Health Address [address] [place] [address] Care Team Providers Care Receiving Clerk Name Role Phone Unavailable Primary Care Provider Unavailabl e Allergies Active Allergy Reactions Criticality Noted Date Comments Penicillins Hives,Rash Low 12/01/2016 hives Medications ascorbate calcium, vitamin C, (Vitamin C, ascorbate calcium,) 814 mg/gram powder Take by mouth. Active zinc sulfate 66 mg tablet Take by mouth. Activ e prenat.vits,april, [id number] tablet Take by mouth. Activ e LACTOBAC [...] Most Recently Relevant to Health Maintenance Insurance [facility] [place] FED[place]AL [facility] CONNECTION DIRECT CARE DEMAND PLANNER [place] [id number]
--- OUTSIDE RECORDS SUMMARY | 2025-02-24 08:06 | XMS_ITS | Encounter Summary ---
Author Organization [facility] Address [address] [place] [address] [place] [phone] Phone Care Team Providers Care Toll Collector Supervisor Name Role Phone Christopher Jones CNP Primary Care Provider [phone] Mirna Rosario MD Unavailable [phone] Tamar Herron RN Unavailable [email or web address]-C Unavailable Encounter Details Date Type Department Care Team (Late st Contact Info) Description 08/04/2023 Procedure Pass [address] [place] [address] Social History Tobacco Use Types Packs/Day Years [...] st Contact Info) Description 12/18/2024 Procedure Pass [address] [address] 02/26/2025 8:00 AM EST Office Visit [facility] [address] [place] [address] [place] [address] Jersey Garza MD [address] [place] [address], [address] [place] [address] [email or web address] 05/12/2025 10:30 AM EST Office Visit [facility] [address] [place] [address] Aurora Hallman PA-C [address] [place] [address] 08/05/2025 7:45 AM EDT Appointment [address] [address] Christopher Jones, LIA [address] [place] [address] 12/24/2025 8:00 AM EDT Office Visit [address] [address] Christopher Jones, PNEUMATIC TUBE FITTER [address] [place] [address] documented as of this encounter Visit Diagnoses Not on filedocumented in this encounter Additional Health Concerns Infection Onset Date Last Indicated Resolved Time CoV-Risk 08/11/2023 08/11/2023 08/22/2023 1:22 AM EDT documented as of this encounter Care Teams Toll Collector Supervisor Relationship Specialty Start Date End Date Christopher Jones CNP [address] [place] [address] [email or web address] PCP - General Family Medicine 03/16/23 Mirna Rosario MD [address] [address] [email or web address] Obstetrics and Gynecology 10/03/23 Tamar Herron RN [address] [place] [phone] [email or web address] Registered Nurse 10/03/23 Dixie Jones PA-C [address] [place] [address] [email or web address] Physician Charter Driver Physician Charter Driver 10/17/24 documented as of this encounter Additional Source Comments The information contained in this document represents components of the legal health record. It is not the complete legal health record.[facility]
--- OUTSIDE RECORDS SUMMARY | 2025-02-24 08:06 | XMS_ITS | Encounter Summary ---
Author Organization [facility] Health Address [address] [place] [address] Care Team Providers Care Investigation Clerk Name Role Phone Unavailable Primary Care Provider Unavailabl e Prior Encounters Date Type Department Care Team Description 10/28/2021 5:00 PM MDT Office Visit [facility] [address], [address] [place], [place] [phone] Diane Estrada, [facility] 05/06/2019 Converted CPS Chart Documents [place] [address] [place] [phone] <No scans attached> 05/06/2019 Converted CPS Chart Documents [facility] [address], [address] [place] [phone] <No scans attached> 05/06/2019 Converted CPS Chart Documents [facility] [address] [place] [address] , [address] [place] [address] <No scans attached> 05/06/2019 Converted CPS Chart Documents [facility] [address], [address] [place], [place] [phone] <No scans attached> 05/06/2019 Converted 13x Documents [place] [facility] [address] [place] [phone] <No scans attached> 05/06/2019 Converted 13x Documents [facility] [address], [address] [place] [phone] <No scans attached> 05/06/2019 Converted 13x Documents [facility] [address] [place] [address] , [address] [place] [address] <No scans attached> 05/06/2019 Converted 13x Documents [facility] [address], [address] [place] [address] <No scans attached> Last Filed Vital [...] 12 ENDODONTIC THERAPY, PREMOLAR TOOTH (EXCLUDING FINAL SIKH) Routine 02/21/2018 1:00 AM MST 12 CEREC [...] 12 ENDODONTIC THERAPY, PREMOLAR TOOTH (EXCLUDING FINAL SIKH) Routine 02/22/2017 1:00 AM MST 12 CORE BUILDUP, INCLUDING ANY PINS WHEN REQUIRED Routine 02/22/2017 1:00 AM MST 12 CEMENT CROWN Routine 02/22/2017 1:00 AM MST SINGLE X-RAY Routine 02/22/2017 1:00 AM MST 12 ENDODONTIC THERAPY, PREMOLAR TOOTH (EXCLUDING FINAL SIKH) Routine 02/08/2017 1:00 AM MDT 12 ENDO [...] MDT Visit Diagnoses Not on file Insurance [facility] [place] FED[place] CONNECTION DIRECT CARE GREEN CHAIN MARKER OR SUPPLIER FEDERAL [place]PE[place] [id number]
--- OUTSIDE RECORDS SUMMARY | 2025-02-24 08:07 | XMS_ITS | Clinical Summary ---
Author Organization [facility] Address [address] [place] [phone] Phone Care Team Providers Care Capacitor Tester Name Role Phone Christopher Carson CNP Primary Care Provider [phone] Mirna Rosario MD Unavailable Tamar Herron RN Unavailable [email or web address] Dixie Carson PA-C Unavailable [phone] Allergies Active Allergy Reactions Criticality Noted Date [...] needed. 4 Active triamcinolone acetonide 0.025 % creamIndications: Rash and other nonspecific skin eruption Apply topically 2 (two) times a day as needed (itching). 30 g 1 5 Active albuterol 90 mcg/actuation inhalerIndication s:Mild intermittent asthma without complication Inhale 2 puffs into the lungs every 6 (six) hours as needed for wheezing. 18 g 3 5 Active metFORMIN (GLUCOPHAGE-XR) 500 MG 24 hr tabletIndications :PCOS (polycystic ovarian syndrome) Take 1 tablets by mouth in the morning and two tablets by mouth in the evening 270 tablet 2 5 Active SYNTHROID 50 mcg tabletIndications :Female fertility problem Take 1 tablet (50 mcg total) by mouth every morning. 90 tablet 3 5 Active erythromycin 2 % external solution Apply topically daily as needed (acne). 60 mL 1 5 Active azithromycin (ZITHROMAX) 250 MG tablet Take 1 tablet (250 mg total) by mouth daily. Two tablets day one One tablet day 2 through 5 6 tablet Active benzonatate (TESSALON) 100 MG capsule Take 1 capsule (100 mg total) by mouth 3 (three) times a day as needed for cough. 21 capsule 5 01/29/20 25 Active Problems Problem Noted Date Diagnosed Date Encounter for screening mamm ogram for malignant neoplasm of breast 12/18/2024 Assessment & Plan (12/18/2024 8:49 AM EDT): Start screening at age 35. Order entered and phone # provided for patient for scheduling. CBE completed today and will do with SAFETY COORDINATOR as well Vitamin D deficiency 12/18/2024 Assessment [...] 8:48 AM EDT): On Metformin. Follows with SAFETY COORDINATOR and will arrange routine visit. Menses regularly, pap smear utd Assessment & Plan (12/14/2023 8:53 AM EDT): On Metformin. Gets menses regularly but has noticed flow has decreased and slightly longer time inbetween. Unsure if related to anti-histamine. Would be interested in establishing care with SAFETY COORDINATOR, referral entered and phone # provided for [...] Tried to get in with GI in [place] but next appointment October. Referral placed to [facility] and phone # provided for patient Assessment & Plan (11/10/2022 10:10 AM EDT): Very symptomatic for almosta Decade Will recheck H pilory referal given to GI Female fertility problem 11/10/2022 Assessment & Plan (12/18/2024 8:49 AM EDT): Working through IVF Assessment & Plan (09/14/2023 11:55 AM EDT): [facility] plans for another round of IVF 10/2023 if feeling well Assessment & Plan (07/20/2023 5:03 PM EDT): Following with fertility clinic, undergoing IVF Assessment & Plan (03/16/2023 5:07 PM EST): Ongoing x 5 1/2 years. Has worked with multiple fertility clinics, most recent in [place]. On multiple oral agents including Plaquenil to help support. (encourage eye exam every year). Also requires Vitamin D and TSH to be certain levels to help support IVF, requesting to order/check these labs today Assessment & Plan (11/10/2022 10:15 AM EDT): Seeing a fertility specialist in [place] On thyroid replacement to keep TSH <2 Migraine with aura 11/10/2022 Overview (11/10/2022): Bupivacaine q 4 weeks nerve blocks in [place] since 2016 Assessment & Plan (12/18/2024 8:51 AM EDT): Managed on current regimen of medications Assessment & Plan (12/14/2023 8:55 AM EDT): Managed on current regimen/medications Assessment & Plan (03/16/2023 5:05 PM EST): Follows with Dr. Jaramillo through [facility] neurology. Does Bupivacaine nerve blocks every four [...] 8:53 AM EDT): Has since resolved. Seeing outbound sales specialist, next visit 12/2023, on anti-histamine daily Assessment & Plan (09/14/2023 11:56 AM EDT): With significant improvement/resolution, unsure if allergy related. Is scheduled with outbound sales specialist 09/26/23. Requesting to repeat sed rate/CRP to [...] done 07/2023, would be interested in seeing SAFETY COORDINATOR and referral entered Assessment & Plan (07/20/2023 [...] Encounters Date Type Department Care Team Description 02/14/2025 Procedure Pass [facility] Admitting Dept Virtual Department [address] [place] [address] 02/14/2025 Telephone [facility] Gastroenterology Clinic [address] [place] [address] Aurora Hallman PA-C 02/04/2025 Telephone [facility] [address] [place] [address] Ivy Ying CNP Urgent Referral/Sooner appt 01/21/2025 6:20 PM EDT Telemedicine [facility] Virtual Urgent Care [address] [place] [address] Dez Li PA-C Acute maxillary sinusitis, recurrence not specified (Primary Dx) 01/21/2025 8:30 AM EDT Telemedicine [facility] [address] [place] [address] Dixie Carson PA-C Iron deficiency anemia, unspecified iron deficiency anemia type (Primary Dx) 01/21/2025 Telephone [facility] [address] [place] [address] Dez Li PA-C 01/20/[address] [address] Marguerite Edwards 01/17/2025 8:34 AM EDT - 01/17/2025 11:59 PM EDT Hospital Encounter [facility] Phleb Main [address] [place] [address] Dixie Carson PA-C Discharge Disposition: Home or Self Care 12/18/2024 8:46 AM EDT - 12/18/2024 11:59 PM EDT Hospital Encounter [facility] [address] [place] [address] Christopher Carson CNP Discharge Disposition: Home or Self Care 12/18/2024 8:00 AM EDT Office Visit [facility] [address] [place] [phone] Christopher Carson CNP Annual physical exam (Primary [...] status migrainosus 12/03/2024 2:30 PM EDT Infusion [facility] Medical Infusion Center [address] [place] [address] Dixie Carson PA-C Iron deficiency (Primary Dx) 11/25/2024 9:17 AM EDT - 11/25/2024 11:59 PM EDT Hospital Encounter [facility] Phle[facility] Main [address] [place] [address] Gayathri Meyer MD Discharge Disposition: Home or Self Care from Last 3 Months Immunizations Immunization Administration [...] high school, GED, job training, learning the Romansh language, technical skills, or developing parenting skills)? [...] st Contact Info) Description 12/18/2024 Procedure Pass [facility], [address] [address] 02/26/2025 8:00 AM EST Office Visit [facility] Midwifery [address] [place] [address] [place] [address] [place] Garza MD [address] [facility], [address] [place] [address] [email or web address] 05/12/2025 10:30 AM EST Office Visit [facility] Gastroenterology Clinic [address] [place] [address] Aurora Hallman PA-C [address] [place] [address] 08/05/2025 7:45 AM EDT Appointment [facility] [address] [place] [address] Christopher Carson, PUTTY MIXER AND APPLIER [address] [place] [address] [email or web address] 12/24/2025 8:00 AM EDT Office Visit [address] [address] Christopher Carson, PUTTY MIXER AND APPLIER [address] [place] [address] Health Maintenance Due Date Last Done Comments PNEUMOCOCCAL VACCINES (0-49 years) (1 of 2 - PCV) 07/01/2007 INFLUENZA VACCINE (#1) 2024 , 02/14/2023, 02/14/2023, Additional history exists TSH LEVEL 02/11/2025 02/12/2024, 08/16, 04/24/2023, Additional history exists CREATININE LEVEL 12/18/2025 12/18/2024, , 04/24/2023 DEPRESSION SCREENING 12/18/2025 12/18/2024, 12/19/19 25 Adult Td,Tdap Booster 01/28/2026 01/29/2016, 007 PAP SMEAR 07/19/2026 07/20/2023, 06/25/2014 SCREENING FOR DIABETES 12/19/2027 12/18/2024, 2023 HEPATITIS C SCREENING Completed 07/17/2024 , 07/17/2024, 08/11/2023, Additional history exists HIV ONE-TIME SCREENING (18-65 YEARS) Completed 07/17/2024 SMOKING STATUS SCREENING (Once After 26 Yrs) Completed 12/18/2024 COVID-19 VACCINE Completed 12/27/2024, , 02/03/2023, Additional history exists HEPATITIS A VACCINES Aged Out No long er eligible based on patient's age to complete this topic HIB VACCINES Aged Out No longer eligi ble based on patient's age to complete this topic IPV VACCINES Aged Out No longer eligi ble based on patient's age to complete this topic MENINGOCOCCAL VACCINES (ACWY) Aged Out No longer eligible based on patient's age to complete this topic MENINGOCOCCAL VACCINES (B) Aged Out N o longer eligible based on patient's age to complete this topic Medical Devices Not on file Procedures Procedure Name Priority Date/Time Associated Diagnosis Comments CBC AND DIFFERENTIAL Routine 02/22/2025 1:20 PM EST Iron deficiency anemia, unspecified iron deficiency anemia type FERRITIN Routine 02/22/2025 1:20 PM EST Iron deficiency anemia, unspecified iron deficiency anemia type IRON AND IRON BINDING CAPACITY Routine 02/22/2025 1:20 PM EST Iron deficiency anemia, unspecified iron deficiency anemia type CBC AND DIFFERENTIAL Routine 02/22/2025 1:20 PM EST Iron deficiency anemia, unspecified iron deficiency anemia type CBC AND DIFFERENTIAL Routine 01/17/2025 8:42 AM EDT Iron deficiency anemia, unspecified iron deficiency anemia type IRON AND IRON BINDING CAPACITY Routine 01/17/2025 8:42 AM EDT Iron deficiency anemia, unspecified iron deficiency anemia type FERRITIN Routine 01/17/2025 8:42 AM EDT Iron deficiency anemia, unspecified iron deficiency anemia type VITAMIN B12 Routine 01/17/2025 8:42 AM EDT Iron deficiency anemia, unspecified iron deficiency anemia type FOLATE Routine 01/17/2025 8:42 AM EDT Iron deficiency anemia, unspecified iron deficiency anemia type COMPREHENSIVE METABOLIC PANEL (CMP) Routine 12/18/2024 8:46 AM EDT Iron deficiency [...] AM EDT examination or test, positive result HUMAN CHORIONIC GONADOTROPIN (HCG), QUANTITATIVE, BLOOD Routine 11/25/2024 9:25 AM EDT examination or test, positive result HEPATITIS B SURFACE ANTIGEN Routine 07/17/2024 8:00 AM EDT Female infertility Unspecified procreative management TSH WITH REFLEX Routine 02/12/2024 7:34 AM EDT Abnormal uterine bleeding (AUB) PAP TEST Routine 07/20/2023 12:00 AM EDT from Last 3 Months or Most Recently Relevant to Health Maintenance Results * CBC and Differential (02/22/2025 1:20 PM EST) WBC 8.06 4.00 - 11.00 K/uL 02/22/2025 1:27 PM [facility] RBC 4.58 4.00 - 5.20 M/uL 02/22/2025 1:27 PM [facility] Hemoglobin 12.9 12.0 - 16.0 g/dL 02/22/2025 1:27 PM [facility] Hematocrit 40.3 36.0 - 46.0 % 02/22/2025 1:27 PM [facility] MCV 88.0 80.0 - 100.0 fL 02/22/2025 1:27 PM [facility] MCH 28.2 27.0 - 31.0 pg 02/22/2025 1:27 PM [facility] MCHC 32.0 32.0 - 36.0 g/dL 02/22/2025 1:27 PM [facility] MPV 9.7 8.4 - 12.0 fL 02/22/2025 1:27 PM [facility] RDW-CV 14.1 11.5 - 14.5 % 02/22/2025 1:27 PM [facility] PLT 226 150 - 450 K/uL 02/22/2025 1:27 PM [facility] Neutrophils 60.0 % 02/22/2025 1:27 PM [facility] Lymphocytes 29.3 % 02/22/2025 1:27 PM [facility] Monocytes 7.3 % 02/22/2025 1:27 PM [facility] Eosinophils 2.5 % 02/22/2025 1:27 PM [facility] Basophils 0.4 % 02/22/2025 1:27 PM [facility] Imm Grans 0.5 % 02/22/2025 1:27 PM [facility] NRBC 0.0 <=0.0 /100 WBCs 02/22/2025 1:27 PM [facility] Absolute Neutrophils 4.84 1.92 - 7.60 K/uL 02/22/2025 1:27 PM [facility] Absolute Lymphocytes 2.36 0.72 - 4.10 K/uL 02/22/2025 1:27 PM [facility] Absolute Monocytes 0.59 0.16 - 1.10 K/uL 02/22/2025 1:27 PM [facility] Absolute Eosinophils 0.20 0.00 - 0.50 K/uL 02/22/2025 1:27 PM [facility] Absolute Basophils 0.03 0.00 - 0.15 K/uL 02/22/2025 1:27 PM [facility] Absolute Imm Grans 0.04 0.00 - 0.09 K/uL 02/22/2025 1:27 PM [facility] Absolute NRBC 0.00 <=0.00 K cells/uL 02/22/2025 1:27 PM [facility] Absolute Neutrophils 4.84 1.92 - 7.60 K/uL 02/22/2025 1:27 PM [facility] Comment:Automated cell count . Manual ANC may differ if performed. Diff Type Auto 02/22/2025 1:27 PM [facility] Blood 02/22/2025 1:20 PM EST 02/22/2025 1:23 PM EST us Dixie Carson PA-C LAB BLOOD BKR ORDERABLES F inal Result [address] [address] * Iron and Total Iron Binding Capacity (Iron/TIBC) (02/22/2025 1:20 PM EST) Only the most recent of2 resultswithin the time period is included. Iron 45 28 - 170 ug/dL 02/22/2025 2:05 PM [facility] Total Iron-Binding Capacity (TIBC) 234 220 - 460 ug/dL 02/22/2025 2:05 PM [facility] Transferrin Saturatation 19 14 - 50 % 02/22/2025 2:05 PM [facility] Blood 02/22/2025 1:20 PM EST 02/22/2025 1:23 PM EST us Dixie Carson PA-C LAB BLOOD BKR ORDERABLES F inal Result Performing Organization Address [facility]/ZIP Co de Phone Number [address] [address] * Ferritin (02/22/2025 1:20 PM EST) Only the most recent of2 resultswithin the time period is included. Ferritin 64 30 - 150 ug/L 02/22/2025 2:05 PM EST [facility] Comment:The lower limit of t he reference range has been increased to 30 ug/L for all adults to reflect a physiologically sufficient level. See Document Link for additional information. Blood 02/22/2025 1:20 PM EST 02/22/2025 1:23 PM EST Dixie Carson PA-C LAB BLOOD BKR ORDERABLES F inal Result Performing Organization Address [facility] Co de Phone Number [address] [address] * (ABNORMAL) CBC and differential (01/17/2025 8:42 AM EDT) WBC 4.67 4.00 - 11.00 K/uL [facility] RBC 4.52 4.00 - 5.20 M/uL [facility] HGB 12.3 12.0 - 16.0 g/dL [facility] HCT 39.0 36.0 - 46.0 % [facility] PLT 219 150 - 450 K/uL [facility] MCV 86.3 80.0 - 100.0 fL [facility] MCH 27.2 27.0 - 31.0 pg [facility] MCHC 31.5(L) 32.0 - 36.0 g/dL [facility] RDW 16.1(H) 11.5 - 14.5 % [facility] MPV 10.4 8.4 - 12.0 fL [facility] NRBC 0.00 0.00 /100 WBCs [facility] ABSOLUTE NRBC 0.00 0.00 K/uL [facility] DIFF METHOD Auto [facility] NEUTS 49.7 48.0 - 76.0 % [facility] LYMPHS 36.4 18.0 - 41.0 % [facility] MONOS 9.2 4.0 - 11.0 % [facility] EOS 4.1 0.0 - 5.0 % [facility] BASOS 0.2 0.0 - 1.5 % [facility] Granulocytes, immature (%) 0.4 0.0 - 0.9 % [facility] ABSOLUTE NEUTS 2.32 1.92 - 7.60 K/uL [facility] ABSOLUTE LYMPHS 1.70 0.72 - 4.10 K/uL [facility] ABSOLUTE MONOS 0.43 0.16 - 1.10 K/uL [facility] ABSOLUTE EOS 0.19 0.00 - 0.50 K/uL [facility] ABSOLUTE BASOS 0.01 0.00 - 0.15 K/uL [facility] Granulocytes, immature 0.02 0.00 - 0.09 K/uL [facility] Blood 01/17/2025 8:42 AM EDT 01/17/2025 8:45 AM EDT Dixie Carson PA-C LAB BLOOD BKR ORDERABLES F inal Result [address] [address] * (ABNORMAL) Folate (01/17/2025 8:42 AM EDT) FOLIC ACID >20.0(H) 4.2 - 19.9 ng/mL [facility] Blood 01/17/2025 8:42 AM EDT 01/17/2025 8:45 AM EDT Dixie Carson PA-C LAB BLOOD BKR ORDERABLES F inal Result [address] [address] * Vitamin B12 (01/17/2025 8:42 AM EDT) VITAMIN B12 934 232 - 1,245 pg/mL [facility] Blood 01/17/2025 8:42 AM EDT 01/17/2025 8:45 AM EDT Dixie Carson PA-C LAB BLOOD BKR ORDERABLES F inal Result [address] [address] * Comprehensive metabolic panel (12/18/2024 8:46 AM EDT) SODIUM 137 133 - 146 mmol/L [facility] POTASSIUM 3.9 3.3 - 5.1 mmol/L [facility] CHLORIDE 102 96 - 108 mmol/L [facility] CO2 27 21 - 35 mmol/L [facility] BUN 7 6 - 19 mg/dL [facility] CREATININE 0.50 0.5 - 1.5 mg/dL [facility] GLUCOSE 85 70 - 99 mg/dL [facility] ALBUMIN 4.0 3.9 - 4.8 g/dL [facility] TOTAL PROTEIN 7.5 6.5 - 8.0 g/dL [facility] CALCIUM 9.2 8.4 - 10.3 mg/dL [facility] ALKALINE PHOSPHATASE 60 39 - 117 U/L [facility] TOTAL BILIRUBIN 0.3 0.0 - 1.2 mg/dL [facility] AST 18 0 - 37 U/L [facility] ALT 14 0 - 40 U/L [facility] GLOBULIN 3.5 1 - 4.8 g/dL [facility] EGFR >120 >59 mL/min/1.7 3m2 [facility] Comment:Estimated glomerular filtration rate calculated using the CKD-EPI refit equation. ANION GAP 12 10 - 20 mmol/L [facility] Blood 12/18/2024 8:46 AM EDT 12/18/2024 8:51 AM EDT us Christopher Carson PUTTY MIXER AND APPLIER LAB BLOOD BKR ORDERABLES F inal Result [address] [address] * 25-OH vitamin D (12/18/2024 8:46 AM EDT) 25 OH VIT D (TOTAL) 57 30 - 60 ng/mL [facility] Blood 12/18/2024 8:46 AM EDT 12/18/2024 8:51 AM EDT Christopherjuan diego Tariqgita Carson [facility] LAB BLOOD BKR ORDERABLES F inal Result Performing Organization Address [facility]/ZIP Co de Phone Number [address] [address] * Magnesium (12/18/2024 8:46 AM EDT) Pathologist [facility] MAGNESIUM 2.2 1.6 - 2.6 mg/dL [facility] Blood 12/18/2024 8:46 AM EDT 12/18/2024 8:51 AM EDT Christopher Carson [facility] LAB BLOOD BKR ORDERABLES F inal Result Performing Organization Address City/[facility]/ZIP Co de Phone Number [address] [address] * (ABNORMAL) Lipid panel (12/18/2024 8:46 AM EDT) HDL 59 mg/dL [facility] Comment: Interpretation <40 mg/dL: Low HDL cholesterol (major risk factor for CHD) Greater than or equal to 60 mg/dL: High HDL cholesterol ( negative risk factor for CHD) HDL - cholesterol is affected by a number of factors, e.g. smoking, excerise, hormones, sex and age. CHOLESTEROL 226 0 - 240 mg/dL [facility] TRIGLYCERIDES 131 30 - 160 mg/dL [facility] LDL 141(H) 50 - 129 mg/dL [facility] Comment: LDL levels in terms of risk for coronary heart disease: <100 mg/dL: Optimal 100-129 mg/dL: Near or above optimal 130-159 mg/dL: Borderline high 160-189 mg/dL: High >190 mg/dL: Very High CARDIAC RISK RATIO 3.8 3.3 - 4.4 [facility] Blood 12/18/2024 8:46 AM EDT 12/18/2024 8:50 AM EDT Christopher Carson CNP LAB BLOOD BKR ORDERABLES F inal Result [address] [address] * Progesterone (11/25/2024 9:25 AM EDT) PROGESTERONE 27.60 ng/mL [facility] Comment: FEMALE: Follicular: 0.057 - 0.893 ng/ml Luteal: 1.83 - 23.9 ng/ml Blood 11/25/2024 9:25 AM EDT 11/25/2024 9:28 AM EDT Gayathri Meyer MD LAB BLOOD BKR ORDERABLES Final Result Performing Organization Address [facility]/ZIP Co de Phone Number [address] [address] * Estradiol (11/25/2024 9:25 AM EDT) ESTRADIOL 152 pg/mL [facility] Comment: FEMALE: Follicular: Less than 12 to 233 pg/ml Midcycle: 41 - 398 pg/ml Luteal: 22 - 341 pg/ml Postmenopausal: less than 5 - 138 pg/ml Blood 11/25/2024 9:25 AM EDT 11/25/2024 9:28 AM EDT Gayathri Meyer MD LAB BLOOD BKR ORDERABLES Final Result Performing Organization Address City/[facility]/ZIP Co de Phone Number [address] [address] * HCG (Quantitative, Blood) (11/25/2024 9:25 AM EDT) HCG BETA 0.2 mIU/mL [facility] Comment: Interpretation: FEMALE: Negative: Less than or equal to 1 mIU/mL. 4 Weeks Post Conception: 9.5 - 750 mIU/mL. 12 Weeks Post Conception: [address] - 990574 mIU/mL. Test Methodology Tim [id number] Patient results determined by assays using different manufacturers or methods may not be comparable. Blood 11/25/2024 9:25 AM EDT 11/25/2024 9:28 AM EDT us Gayathri Meyer MD LAB BLOOD BKR ORDERABLES Final Result Performing Organization Address [facility] Co de Phone Number [address] [address] * Hepatitis B surface antigen (07/17/2024 8:00 AM EDT) HBV SURFACE ANTIGEN NON-REACTI VE NON-REACTI VE [facility] Blood 07/17/2024 8:00 AM EDT 07/17/2024 8:07 AM EDT us Mirna Rosario MD LAB BLOOD BKR ORDERABLES Fi nal Result Performing Organization Address [facility] Co de Phone Number [address] [address] * TSH with reflex (02/12/2024 7:34 AM EDT) TSH 1.77 0.27 - 4.20 uIU/mL [facility] Blood 02/12/2024 7:34 AM EDT 02/12/2024 7:38 AM EDT us [place] Garza MD LAB BLOOD BKR ORDERABLES Final Result Performing Organization Address [facility] Co de Phone Number [address] [address] * Pap Test (07/20/2023 12:00 AM EDT) Report [address] [address] Product Marketing Consultant: Jade Talavera MD SAFETY COORDINATOR Cytology Report FINAL DIAGNOSIS A. PAP SMEAR [...] 59, 66, 68) Note: Testing performed by [employer] HR-HPV analysis. Clinical correlation is advised. This HPV test was performed at [facility], [address] [place] [address]. This test has been FDA approved for both SurePath and ThinPrep cervical cytology specimens. The accuracy and precision of this test for all other specimen sources has been verified in the Cytopathology Laboratory of the [facility] and has not been cleared or approved by the U.S. Food and Drug Administration. Clinical correlation is advised. CLINICAL HISTORY Date of Last Menstrual Period: 06-29-2022 Other Clinical Conditions: Screening Pap SPECIMEN SOURCE A: PAP SMEAR (SUREPATH) CE Patient Name: BINA COMBS : 1990 (Age: 33) Sex: F Institution: [facility] Location: [facility] Date of Collection: 07/20/2023 Date of Reported: 07/28/2023 11:33 Results to: Christopher Carson EXTERIOR DESIGNER [facility] Final Diagnosis A. PAP SMEAR (SUREPATH) CE: SPECIMEN ADEQUACY: Satisfactory for evaluation; transformation zone present. INTERPRETATION: NEGATIVE FOR INTRAEPITHELIAL LESION OR MALIGNANCY. [facility] Results\Inter pretation A. PAP SMEAR (SUREPATH) CE: Human Papilloma Virus TestNEGATIVE for high-risk Human Papilloma Virus types 16, 18, 45 and the Other high risk probe set (Includes 31, 33, 35, 39, 51, 52, 56, 58, 59, 66, 68)Note: Testing performed by [employer] HR-HPV analysis. Clinical correlation is advised. This HPV test was performed at [facility], [address] [place] [address]. This test has been FDA approved for both SurePath and ThinPrep cervical cytology specimens. The accuracy and precision of this test for all other specimen sources has been verified in the Cytopathology Laboratory of the [facility] and has not been cleared or approved by the U.S. Food and Drug Administration. Clinical correlation is advised. [facility] Conversion Type (Conversion Source) 07/20/2023 07/24/2023 9:18 AM EDT Christopher Carson PUTTY MIXER AND APPLIER CYTOLOGY ORDERABLES Edited Result - Final [facility] [address] [place] [address] from Last 3 Months or Most Recently Relevant to Health Maintenance Insurance [facility] PPO EPO [facility] PPO EPO [facility] PPO [facility]PO [facility] PPO EPO [facility] PPO [facility]PO [facility] PPO EPO Care Teams Capacitor Tester Relationship Specialty Start Date End Date Christopher Carson CNP [address] [place] [address] [place] [address] [email or web address] PCP - [facility] Medicine 03/16/23 Mirna Rosario MD [address] [place] [address] [email or web address] Obstetrics and Gynecology 10/03/23 Tamar Herron RN [address] [place] [address] [email or web address] Registered Nurse 10/03/23 Dixie Carson, SACHI [address] [place] [address] [email or web address] Physician Pocket Operator Physician Pocket Operator 10/17/24 Additional Source Comments The information contained in this document represents components of the legal health record. It is not the complete legal health record.[facility]
--- OUTSIDE RECORDS SUMMARY | 2025-02-24 08:07 | XMS_ITS | Encounter Summary ---
Author Organization [facility] Address [address] [place] [address] [place] [address] Phone Care Team Providers Care Bank Teller Machine Mechanic Name Role Phone Christopher Jones CNP Primary Care Provider [phone] Mirna Rosario MD Unavailable [phone] Tamar Herron RN Unavailable [email or web address] Dixie Jones PA-C Unavailable [phone] Encounter Details Date Type Department Care Team (Late st Contact Info) Description 02/14/2025 Telephone [facility] [address] [place], [place] [id number] Aurora Hallman PA-C [address] [address] [email or web address] Social History Tobacco Use Types Packs/Day Years [...] high school, GED, job training, learning the Niuean language, technical skills, or developing parenting skills)? [...] AM EDT documented as of this encounter Progress Notes * Aurora Hallman PA-C - 02/14/2025 3:38 PM EDT Please schedule direct EGD and colonoscopy within the next 8 weeks please, can refer to previous telephone/mychart messages. documented in this encounter Plan of Treatment Upcoming Encounters Date Type Department Care Team (Late st Contact Info) Description 12/18/2024 Procedure Pass [address] [address] 02/26/2025 8:00 AM EST Office Visit [facility] OBGYN & Midwifery [address] [place] [address] [place] [address] Jersey Garza MD [address] [place] [address], [address] [place] [address] [email or web address] 05/12/2025 10:30 AM EST Office Visit [facility] [address] [place] [address] Aurora Hallman PA-C [address] [place] [address] 08/05/2025 7:45 AM EDT Appointment [address] [address] Christopher Jones, PUBLICIST [address] [place] [address] 12/24/2025 8:00 AM EDT Office Visit [address] [address] Christopher Jones, PUBLICIST [address] [place] [address] [email or web address] documented as of this encounter Visit Diagnoses Diagnosis Iron deficiency- Primary Disorders of iron metabolism Gastroesophageal reflux disease, unspecified whether esophagitis present documented in this encounter Additional Health Concerns Assessment Noted Time PHQ-9 Depression Total Score: 3 12/19/19 8:10 AM EDT PHQ-2 Depression Total Score: 2 12/19/19 8:10 AM EDT documented as of this encounter Care Teams Bank Teller Machine Mechanic Relationship Specialty Start Date End Date Christopher Jones CNP [address] [place] [address] [email or web address] PCP - [facility] Medicine 03/16/23 Mirna Rosario MD [address] [address] [email or web address] Obstetrics and Gynecology 10/03/23 Tamar Herron, RN [address] [place] [address] [email or web address] Registered Nurse 10/03/23 Dixie Jones, PAZoieC [address] [place] [address] [email or web address] Physician Human Resources Consultant Physician Human Resources Consultant 10/17/24 documented as of this encounter Additional Source Comments The information contained in this document represents components of the legal health record. It is not the complete legal health record.[facility]
--- OUTSIDE RECORDS SUMMARY | 2025-02-24 08:07 | XMS_ITS | Encounter Summary ---
Author Organization [facility] Address [address] [place] [address] Phone Care Team Providers Care Religious Leader Name Role Phone Christopher Jones CNP Primary Care Provider [phone] Mirna Rosario MD Unavailable Tamar Herrno RN Unavailable [email or web address] Dixie Jones PA-C Unavailable [phone] Encounter Details Date Type Department Care Team (Late st Contact Info) Description 01/21/2025 Telephone [facility] [address] [place] [address] Dez Li PA-C [address] [facility] [place] [address] [email or web address] Social History Tobacco Use Types Packs/Day Years [...] high school, GED, job training, learning the Dominican language, technical skills, or developing parenting skills)? [...] st Contact Info) Description 12/18/2024 Procedure Pass [address] [address] 02/26/2025 8:00 AM EST Office Visit [facility] OBGYN & Midwifery [address] [place] [address] [place] [address] Jersey Garza MD [address] [place] [address], [address] [place] [address] [email or web address] 05/12/2025 10:30 AM EST Office Visit [facility] [address] [place] [address] Aurora Hallman PA-C [address] [place] [address] 08/05/2025 7:45 AM EDT Appointment [address] [address] Christopher Jones, LIA [address] [place] [address] 12/24/2025 8:00 AM EDT Office Visit [address] [address] Christopher Jones, LIA [address] [place] [address] documented as of this encounter Visit Diagnoses Not on filedocumented in this encounter Additional Health Concerns Assessment Noted Time PHQ-9 Depression Total Score: 3 12/19/19 25 8:10 AM EDT PHQ-2 Depression Total Score: 2 12/19/19 25 8:10 AM EDT documented as of this encounter Care Teams Religious Leader Relationship Specialty Start Date End Date Christopher Jones CNP [address] [place] [address] [email or web address] PCP - General [facility] Medicine 03/16/23 Mirna Rosario MD [address] [address] [email or web address] Obstetrics and Gynecology 10/03/23 Tamar Herron RN [address] [place] [address] [email or web address] Registered Nurse 10/03/23 Dixie Jones, SACHI [address] [place] [address] [email or web address] Physician Coal Cutting Machine Operator Physician Coal Cutting Machine Operator 10/17/24 documented as of this encounter Additional Source Comments The information contained in this document represents components of the legal health record. It is not the complete legal health record.[facility]
--- OUTSIDE RECORDS SUMMARY | 2025-02-24 08:07 | XMS_ITS | Encounter Summary ---
Author Organization [facility] Address [address] [place] [address] [place] [address] Phone Care Team Providers Care Curve Cleaner Name Role Phone Christopher Jones CNP Primary Care Provider [phone] Mirna Rosario MD Unavailable [phone] Tamar Herron RN Unavailable [email or web address] Dixie Jones PA-C Unavailable [phone] Encounter Details Date Type Department Care Team (Late st Contact Info) Description 02/14/2025 Procedure Pass [facility]oscopy Admitting Dept Virtual Department [address] [place], [place] [phone] Social History Tobacco Use Types Packs/Day Years [...] high school, GED, job training, learning the Malian language, technical skills, or developing parenting skills)? [...] your housing situation today? I have louis pritchett 12/18/2024 How many times have you move [...] st Contact Info) Description 12/18/2024 Procedure Pass [address] [address] 02/26/2025 8:00 AM EST Office Visit [facility] OBGYN & Midwifery [address] [place] [address] [place] [address] Jersey Garza MD [address] [place] [address], [address] [place] [address] [email or web address] 05/12/2025 10:30 AM EST Office Visit [facility] Gastroenterology Clinic [address] [place] [address] Aurora Hallman PA-C [address] [address] 08/05/2025 7:45 AM EDT Appointment [facility] [address] [place] [address] Christopher Jones CNP 29 [place] [address] 12/24/2025 8:00 AM EDT Office Visit [address] [address] Christopher Jones, LIA [address] [place] [email or web address] documented as of this encounter Visit Diagnoses Not on filedocumented in this encounter Additional Health Concerns Assessment Noted Time PHQ-9 Depression Total Score: 3 12/19/19 8:10 AM EDT PHQ-2 Depression Total Score: 2 12/19/19 8:10 AM EDT documented as of this encounter Care Teams Curve Cleaner Relationship Specialty Start Date End Date Christopher Jones CNP [address] [place] [address] PCP - General Family Medicine 03/16/23 Mirna Rosario MD [address] [place] [address] [email or web address] Obstetrics and Gynecology 10/03/23 Tamar Herron RN [address] [place] [address] [email or web address] Registered Nurse 10/03/23 Dixie Jones PA-C [address] [place] [address] [email or web address] Physician Haulpak Driver Physician Haulpak Driver 10/17/24 documented as of this encounter Additional Source Comments The information contained in this document represents components of the legal health record. It is not the complete legal health record.[facility]
--- OUTSIDE RECORDS SUMMARY | 2025-02-24 08:07 | XMS_ITS | Encounter Summary ---
Author Organization [facility] Address [address] [place] [address] [place] [address] Phone Care Team Providers Care Agricultural Produce Washer Name Role Phone Christopher Jones CNP Primary Care Provider [phone] Mirna Rosario MD Unavailable [phone] Tamar Herron RN Unavailable [email or web address] Dixie Jones PA-C Unavailable [phone] Reason for Visit * Reason Onset Date Comments Urgent Referral/Sooner appt 02/04/2025 Encounter Details Date Type Department Care Team (Late st Contact Info) Description 02/04/2025 Telephone [facility]astroenterology Clinic 10 [place] [address] Gautam Ying CNP [address] [address] [email or web address] Urgent Referral/Sooner appt Social History Tobacco Use Types Packs/Day Years [...] high school, GED, job training, learning the Guamanian language, technical skills, or developing parenting skills)? [...] Progress Notes * Aurora Hallman PA-C - 02/12/2025 4:49 PM EDT Pt with iron deficiency without anemia, refractory to IV iron, FIT negative, minor hematochezia only with menses. Hematology recommends colonoscopy. She is starting IVF with embryo transfer likely Apr-May after 2-month suppression period. We should: Ideally schedule diagnostic colonoscopy before embryo transfer if timing and fertility team allow. If unable to complete before IVF, defer until unless anemia or alarm symptoms develop. Office visit can be deferred if chart review provides sufficient documentation for insurance coverage. Continue current iron infusions and pantoprazole. Please let her know the following: Thank you for explaining your IVF timeline -- that???s really helpful. Since your iron levels haven???t improved much despite infusions and hematology recommended a colonoscopy, it would make sense to complete that evaluation before your embryo transfer if scheduling allows, and if your insurance covers a diagnostic colonoscopy without an office visit. . If we???re not able to fit it in before your IVF cycle begins, we can safely defer until after unless new symptoms develop or your iron levels drop further. You wouldn???t need a separate office visit before the procedure as long as we have all the needed information in your chart. Please let us know if you???d like us to look for procedure dates that might work before your IVF window, or if you???d prefer to wait until after. * Collette Givens - 02/12/2025 4:21 PM EDT I spoke with patient. Patient said she is currently not scheduled yet for her embryo transfer, she explained to me that she has to do a two month suppression before, she also mentioned that she mightbe able to get it in April-May. Patient did say when she saw Gautam and that gautam ordered a fit test and it did not show anything. She said the only time she sees blood in her stool is when she is going through her menstrual cycle. She said that she is getting iron infusions and her levels haven't changed much at all. Her apprentice cosmetologist recommended her to have a colonoscopy which she would like to speak about. She also mentioned that she is still taking the pantoprazole. * Aurora Hallman PA-C - 02/12/2025 4:01 PM EDT Please let her know that I reviewed the records. When is her embryo transfer scheduled? Also, I would like her to have a FIT; I did not see one in the records. Order for FIT added. Thanks. * An Tripp - 02/12/2025 1:45 PM EDT Pt requesting a call back to go over current symptoms and advice on what to do until she can be seen in office, appointment was moved up from 06/11/25 to 05/12/25 * Johanna Bourgeois - 02/04/2025 3:01 PM EDT Pt calling in has an appointment scheduled on 06/11/25 with CORNELL and pt's PCP sent another urgent referral on 01/21 due to chronic iron deficiency, scant hematochezia-no prior colonoscopy. Pt is looking to schedule sooner appt. Pls advise. documented in this encounter Plan of Treatment Upcoming Encounters Date Type Department Care Team (Late st Contact Info) Description 12/18/2024 Procedure Pass [address] [address] 02/26/2025 8:00 AM EST Office Visit [facility] OBGYN & Midwifery [address] [place] [address] [place] [address] Jersey Garza MD [address] [place] [address], [address] [place] [address] [place] [address] [email or web address] 05/12/2025 10:30 AM EST Office Visit [facility] [address] [place] [address] Aurora Hallman PA-C [address] [address] 08/05/2025 7:45 AM EDT Appointment [facility] [address] [place] [address] Christopher Jones CNP [address] [place] [address] 12/24/2025 8:00 AM EDT Office Visit [address] [address] Christopher Jones CNP [address] [place] [address] Scheduled Orders Name Type Priority Associated Diagnoses Orde r Schedule Fecal immunochemical test x1 (FIT) Lab Routine Iron deficiency Expected: 02/12/2025, Expires: 02/12/2026 documented as of this encounter Visit Diagnoses Diagnosis Iron deficiency- Primary Disorders of iron metabolism documented in this encounter Additional Health Concerns Assessment Noted Time PHQ-9 Depression Total Score: 3 12/19/19 8:10 AM EDT PHQ-2 Depression Total Score: 2 12/19/19 8:10 AM EDT documented as of this encounter Care Teams Agricultural Produce Washer Relationship Specialty Start Date End Date Christopher Jones CNP [address] [place] [address] PCP - General Family Medicine 03/16/23 Mirna Rosario MD [address] [place] [address] [email or web address] Obstetrics and Gynecology 10/03/23 Tamar Herron RN [address] [place] [address] [email or web address] Registered Nurse 10/03/23 Dixie Jones PA-C [address] [place] [address] [email or web address] Physician Wire Basket Maker Physician Wire Basket Maker 10/17/24 documented as of this encounter Additional Source Comments The information contained in this document represents components of the legal health record. It is not the complete legal health record.[facility]
--- NOTE | 2025-02-24 08:08 | MHC.OFFVIS ---
Vital Signs 02/24/25 08:14 Height 5 ft 3 in Weight 145 lb BMI 25.7 BP 110/80 Blood Pressure Location Lt brachial Position Sitting Respiration 16 Pulse 86 Pulse Source Pulse Oximeter Pulse Oximetry (%) 100 Oxygen Delivery Method Room Air Intake Visit Reasons: NERVE BLOCK Decorator Lighting Fixtures Required: No Accompanied by: Spouse Allergies Penicillins Allergy (Unknown, Verified 01/23/25 08:17) rash HPI Comments Details: Main is a 34-year-old female patient with a past medical history of asthma and PCOS presenting to the clinic today for occipital nerve blocks and trigger point injections. Per previously documented HPI: Going back many years, Main being having headaches around age 9 at the time of her menses onset. When her migraines 1st began, they were predominantly located on the right side of her head though in college headaches worsened and became more left-sided dominant. She also has a history of bruxism which has likely contributed to her headaches overall. Currently, headaches are still left-sided dominant though do still occur at times on the right. Headache locations are typically to the temporal areas and occipital areas. She is currently averaging approximately 5 migraines per month lasting 2-6 hours. The sooner she takes an abortive medication the shorter duration of headache. She experiences visual auras with approximately 25% of her migraines are less. 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 This has occurred 3 times in her lifetime that she is aware of. Most of her migraines are accompanied by nausea, difficulty concentrating, light and sound sensitivity, fatigue, and occasionally a droopy left eye. When she does have a migraine, she takes Nurtec 75 mg which works well at approximately 75% efficacy. She has tried Ubrelvy in the past which did work better although has been difficult to obtain due to insurance preferred agents. She started occipital nerve blocks and temporal trigger point injections approximately 8 years ago. For some time, she was also doing a left auricular temporal nerve block however she feels that over the course of last few years her bruxism has improved some and we have not been performing left auricular temporal nerve blocks over the past year or so. She does continue to do well with the nerve blocks and trigger point injections and previously with attempts to reduce the frequency at which she was getting the injections, she had an uptake in her migraines. She is currently getting them once per month with good headache control . At the time of our last visit she had reported an increase in the frequency and intensity of her migraines after receiving the 0.25% bupivacaine. At our last visit, I completed her injections with the 0.5% bupivacaine and she went from having 3 migraines per week after the 0.25% bupivacaine down to 3 migraines per month total over the course of the last month after the 0.5% bupivacaine. Overall, very happy with the control of her migraines over the last month when she does continue to take Nurtec 75 mg as needed which works well. She tells me that she and her will likely be soon undergoing an embryo transfer (perhaps in the spring) and would like to hold off on any changes in her therapy for now. She would in the future like to consider other means of preventive options but not until she completes the embryo transfer. [facility] Medical History (Updated 12/24/24 @ 09:06 by Agueda Mai CNP) Migraine Review of Systems Const All systems reviewed & are unremarkable except as noted in HPI and below Physical Exam Vital Signs: Last Vital Signs Pulse 86 02/24/25 08:14 Resp 16 02/24/25 08:14 BP 110/80 02/24/25 08:14 Pulse Ox 100 02/24/25 08:14 Oxygen Delivery Method Room Air 02/24/25 08:14 BMI result Body Mass Index 25.7 Const General: cooperative, healthy appearing, comfortable and no acute distress Orientation/consciousness: patient oriented x3 Limitations: no limitations HEENT Head: Yes normal to inspection and Yes scalp tenderness (Bilateral occipital notch tenderness and left temporal tenderness) Teeth and gingiva: dentition normal Eyes General: appearance normal, both eyes and all related structures Pupils: Equal, round and reactive pupils present Neuro General: patient oriented x3, moves all extremities, normal sensation to monofilament and deep tendon reflexes 2+ bilaterally Cranial nerves: Yes CN's II-XII intact bilaterally and Yes Equal, round and reactive pupils present Cognition (Neuro): normal cognition Gait exam (Neuro): Normal gait present Motor exam (neuro): 5/5 motor strength present throughout, Pronator motor function not present and no tremor noted Sensory Exam: double simultaneous stimulation for sensation normal Coordination: slduby-pl-hgrs test normal Office Procedures Nerve Block Details: Bilateral Greater Occipital Nerve block procedure: Laterally: Bilateral Indications: Occipital neuralgia Current allergies and current list of medications were reviewed prior to procedure, verbal consent was obtained, procedure was explained in detail to the patient prior to starting. Time-out was performed prior to procedure. Following universal hygiene protocols, patient's left occipital area was located by drawing a line between the external occipital protuberance and the mastoid process. The greater occipital nerve was located approximately 2/3 along this millinery salesperson to the occiput, and corresponded with the point of maximum tenderness. Alcohol was applied topically to the skin. A 27 gauge needle (aspirating during insertion) was inserted at a 45 degree angle until just above the periosteum. The providers selected agent (s)/medications (as documented in this note) were injected on the left side (directing needle to center, left and right of painful focus any fanning technique). Pressure with gauze pad was held briefly upon the site of puncture to minimize bleeding and to further spread anesthetic subcutaneously. The procedure was repeated on the right side. The patient was monitored for 15 minutes after the procedure and no complications were observed. Post procedure care was reviewed with the patient including application of ice intermittently to the injection sites over the course of the day to reduce inflammation. CPT: 96390-Aczodsa Occipital Procedure code (CPT) selection complete Therapeutic Injection Therapeutic Injection Details: Trigger point injection procedure: Laterally:Left Indications: Chronic headaches, myofascial pain Following universal hygiene protocol, after explaining the risks and benefits as well as hazards of the procedure to the patient, consent was signed and placed in the chart. Time-out prior to starting the procedure was performed. The areas over the left temporalis were cleansed with alcohol. 4 Sites in the left temporalis muscle injected with a 27 gauge 1.5 in needle with myofascial spasm. Patient tolerated the procedure well, localized bleeding was controlled. Patient monitored in the clinic for 15 minutes for complications. Patient was discharged home with instructions to apply ice to the back of their head as needed. 11318-Yisimdw Point Injection 1 or 2 sites All charges added?: Procedure code (CPT) selection complete Office Meds bupivacaine (PF) 0.5 % (5 mg/mL) injection solution Performing Provider: Agueda Mai CNP Performing Location: [facility] [place] [facility] Administered by: Agueda Mai CNP on 02/24/25 08:57 Dose Route Admin Location Dispensed Lot Number Expiration Date [facility] [employer] Development Facilitator 6 mL Infiltration 10 mL 80571-275-66 XELLIA PHARMACE Total Dispensed Waste 10 mL 40 % bupivacaine (PF) 0.5 % (5 mg/mL) injection solution Performing Provider: Agueda Mai CNP Performing Location: [facility] [place] [facility] Administered by: Agueda Mai CNP on 02/24/25 08:57 Dose Route Admin Location Dispensed Lot Number Expiration Date [facility] [employer] Development Facilitator 1 mL Infiltration 10 mL [id number] XELLIA PHARMACE Total Dispensed Waste 10 mL 90 % Assessment & Plan Assessment & Plan (1) Bruxism (teeth grinding): Code(s): F45.8 - Other somatoform disorders Category: Medical Plan: . (2) Bilateral occipital neuralgia: Code(s): M54.81 - Occipital neuralgia Category: Medical Plan: . (3) Migraine with aura and without status migrainosus, not intractable: Code(s): G43.109 - Migraine with aura, not intractable, without status migrainosus Category: Medical Plan: . Larissa Quach is a 34-year-old female patient with a past medical history of asthma and PCOS presenting to the clinic today for occipital nerve blocks and trigger point injections. She reports much better control over the course of the last month having approximately 3 migraines in total after using the 0.5% bupivacaine. Today, we again used 0.5% bupivacaine for her occipital nerve blocks and trigger point injections. She did well with the procedure without any complications. She was discharged in baseline condition. She will return in 1 month for continued injections. She continues to use Nurtec for as-needed therapy which works well for her. She has refills on this medication at home. She and her plan to undergo another embryo transfer within the next 6 months or so. After this however she would be open to a trial of a new preventive therapies should she not become . This is a discussion we can continue to consider in the future. We did review in depth today some of the medication options that we can consider moving forward. -occipital nerve block and left temporalis trigger point injections performed today -continue Nurtec for acute therapy at home a -follow up in 1 month or sooner if needed Orders: Orders AMB Trigger Point Injection Today F45.8 - Other somatoform disorders, G43.109 - Migraine with aura, not intractable, without status migrainosus, M54.81 - Occipital neuralgia AMB Nerve Block Today F45.8 - Other somatoform disorders, G43.109 - Migraine with aura, not intractable, without status migrainosus, M54.81 - Occipital neuralgia Coding Level of Care Code Est Pt Level 3 (08041) Diagnoses Bruxism (teeth grinding) F45.8 Bilateral occipital neuralgia M54.81 Migraine with aura and without status migrainosus, not intractable G43.109 CPT Codes Nerve Block - CPT: 39094-Tmiqkbd Occipital ([id number]) Therapeutic Injection - Ther Injection 1: 53988-Bkphloa Point Injection 1 or 2 sites ([id number])
[2025-02-24 08:14] VITALS: BP 110/80; PULSE 86; RESP 16; O2SAT 100; BMI 25.7
== END 2025-02-24 09:27 | disposition home or self-care (01) ==
LOC: HO.HSM 08:01
PROVIDERS: Visit Provider Nurse Practitioner
DX: M54.81 Occipital neuralgia (principal); F45.8 Other somatoform disorders; G43.109 Migraine with aura, not intractable, without status migrainosus
CPT/HCPCS: 20552; 64405

== ENCOUNTER → 2025-02-24 08:01 | Outpatient (BNVA) | payer BC, SELFPAY | PROVIDERS: Visit Provider Nurse Practitioner | DX: F45.8 Other somatoform disorders (principal); M54.81 Occipital neuralgia; G43.109 Migraine with aura, not intractable, without status migrainosus; M79.18 Myalgia, other site; G89.29 Other chronic pain | CPT/HCPCS: 20552; 64405; J0665 ==

== ENCOUNTER 2025-03-24 08:03 | Outpatient (AMB) | payer BC, SELFPAY ==
[2025-03-24 08:11] VITALS: BP 120/80; PULSE 81; RESP 16; O2SAT 99; BMI 26.0
--- NOTE | 2025-03-24 08:11 | A.OFFVIS_ITS ---
Vital Signs 03/24/25 08:11 Height 5 ft 3 in Weight 147 lb BMI 26.0 BP 120/80 Blood Pressure Location Rt brachial Position Sitting Respiration 16 Pulse 81 Pulse Source Pulse Oximeter Pulse Oximetry (%) 99 Oxygen Delivery Method Room Air Intake Visit Reasons: NERVE BLOCK Social Insurance Analyst Required: No Accompanied by: Spouse Allergies Penicillins Allergy (Unknown, Verified 03/24/25 08:13) rash HPI Comments Details: Main is a 34-year-old female patient with a past medical history of asthma and PCOS presenting to the clinic today for occipital nerve blocks and trigger point injections. Per previously documented HPI: Going back many years, Main being having headaches around age 9 at the time of her menses onset. When her migraines 1st began, they were predominantly located on the right side of her head though in college headaches worsened and became more left-sided dominant. She also has a history of bruxism which has likely contributed to her headaches overall. Currently, headaches are still left-sided dominant though do still occur at times on the right. Headache locations are typically to the temporal areas and occipital areas. She is currently averaging approximately 5 migraines per month lasting 2-6 hours. The sooner she takes an abortive medication the shorter duration of headache. She experiences visual auras with approximately 25% of her migraines are less. 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 This has occurred 3 times in her lifetime that she is aware of. Most of her migraines are accompanied by nausea, difficulty concentrating, light and sound sensitivity, fatigue, and occasionally a droopy left eye. When she does have a migraine, she takes Nurtec 75 mg which works well at approximately 75% efficacy. She has tried Ubrelvy in the past which did work better although has been difficult to obtain due to insurance preferred agents. She started occipital nerve blocks and temporal trigger point injections approximately 8 years ago. For some time, she was also doing a left auricular temporal nerve block however she feels that over the course of last few years her bruxism has improved some and we have not been performing left auricular temporal nerve blocks over the past year or so. She does continue to do well with the nerve blocks and trigger point injections and previously with attempts to reduce the frequency at which she was getting the injections, she had an uptake in her migraines. She is currently getting them once per month with good headache control . She tells me today that she has done well in terms headache control. She reports maximally 3-4 breakthrough migraines all of which responded well to her as-needed Nurtec 75 mg. Of note, she will be starting therapy fertility in April. She will be started on [place]. [facility] Medical History (Updated 12/24/24 @ 09:06 by Agueda Mai CNP) Migraine Review of Systems Const All systems reviewed & are unremarkable except as noted in HPI and below Physical Exam Vital Signs: Last Vital Signs Pulse 81 03/24/25 08:11 Resp 16 03/24/25 08:11 BP 120/80 03/24/25 08:11 Pulse Ox 99 03/24/25 08:11 Oxygen Delivery Method Room Air 03/24/25 08:11 BMI result Body Mass Index 26.0 Const General: cooperative, healthy appearing, comfortable and no acute distress Orientation/consciousness: patient oriented x3 Limitations: no limitations HEENT Head: Yes normal to inspection and Yes scalp tenderness (Bilateral occipital notch tenderness and left temporal tenderness) Teeth and gingiva: dentition normal Eyes General: appearance normal, both eyes and all related structures Pupils: Equal, round and reactive pupils present Neuro General: patient oriented x3, moves all extremities, normal sensation to monofilament and deep tendon reflexes 2+ bilaterally Cranial nerves: Yes CN's II-XII intact bilaterally and Yes Equal, round and reactive pupils present Cognition (Neuro): normal cognition Gait exam (Neuro): Normal gait present Motor exam (neuro): 5/5 motor strength present throughout, Pronator motor function not present and no tremor noted Sensory Exam: double simultaneous stimulation for sensation normal Coordination: diexif-ey-lzuk test normal Office Procedures Nerve Block Details: Bilateral Greater Occipital Nerve block procedure: Laterally: Bilateral Indications: Occipital neuralgia Current allergies and current list of medications were reviewed prior to procedure, verbal consent was obtained, procedure was explained in detail to the patient prior to starting. Time-out was performed prior to procedure. Following universal hygiene protocols, patient's left occipital area was located by drawing a line between the external occipital protuberance and the mastoid process. The greater occipital nerve was located approximately 2/3 along this pipeline executive to the occiput, and corresponded with the point of maximum tenderness. Alcohol was applied topically to the skin. A 27 gauge needle (aspirating during insertion) was inserted at a 45 degree angle until just above the periosteum. The providers selected agent (s)/medications (as documented in this note) were injected on the left side (directing needle to center, left and right of painful focus any fanning technique). Pressure with gauze pad was held briefly upon the site of puncture to minimize bleeding and to further spread anesthetic subcutaneously. The procedure was repeated on the right side. The patient was monitored for 15 minutes after the procedure and no complications were observed. Post procedure care was reviewed with the patient including application of ice intermittently to the injection sites over the course of the day to reduce inflammation. CPT: 83127-Bpnwzjq Occipital Procedure code (CPT) selection complete Therapeutic Injection Therapeutic Injection Details: Trigger point injection procedure: Laterally:Left Indications: Chronic headaches, myofascial pain Following universal hygiene protocol, after explaining the risks and benefits as well as hazards of the procedure to the patient, consent was signed and placed in the chart. Time-out prior to starting the procedure was performed. The areas over the left temoralis were cleansed with alcohol. 5 Sites in the left temporalis muscle injected with a 27 gauge 1.5 in needle with myofascial spasm. Patient tolerated the procedure well, localized bleeding was controlled. Patient monitored in the clinic for 15 minutes for complications. Patient was discharged home with instructions to apply ice to the back of their head as needed. 47507-Jrqemas Point Injection 1 or 2 sites All charges added?: Procedure code (CPT) selection complete Office Meds lidocaine (PF) 10 mg/mL (1 %) injection solution Performing Provider: Agueda Mai CNP Performing Location: [facility] [place] [facility] Administered by: Agueda Mai CNP on 03/24/25 08:36 Dose Route Admin Location Dispensed Lot Number Expiration Date [facility] [place] Delivery Agent 6 mL peripheral nerve block 10 mL Total Dispensed Waste 10 mL 0 % bupivacaine (PF) 0.5 % (5 mg/mL) injection solution Performing Provider: Agueda Mai CNP Performing Location: [facility] [place] [facility] Administered by: Agueda Mai CNP on 03/24/25 08:36 Dose Route Admin Location Dispensed Lot Number Expiration Date [facility] [place] Delivery Agent 6 mL Infiltration 10 mL [id number] HIKMA PHARMACEU Total Dispensed Waste 10 mL 40 % bupivacaine (PF) 0.5 % (5 mg/mL) injection solution Performing Provider: Agueda Mai CNP Performing Location: [facility] [place] [facility] Administered by: Agueda Mai CNP on 03/24/25 08:36 Dose Route Admin Location Dispensed Lot Number Expiration Date [employer] Delivery Agent 1.5 mL Infiltration 10 mL [id number] HIKMA PHARMACEU Total Dispensed Waste 10 mL 85 % Assessment & Plan Assessment & Plan (1) Migraine with aura and without status migrainosus, not intractable: Code(s): G43.109 - Migraine with aura, not intractable, without status migrainosus Category: Medical Plan: . (2) Bilateral occipital neuralgia: Code(s): M54.81 - Occipital neuralgia Category: Medical Plan: . (3) Bruxism (teeth grinding): Code(s): F45.8 - Other somatoform disorders Category: Medical Plan: . Larissa Quach is a 34-year-old female patient with a past medical history of asthma and PCOS presenting to the clinic today for occipital nerve blocks and trigger point injections. She reports much better control over the course of the last month having approximately 3-4 migraines in total each of which responded well to nurtec. She did well with the procedure without any complications. She was discharged in baseline condition. She will return in 1 month for continued injections. She and her plan to undergo another embryo transfer within the next 6 months or so. After this however she would be open to a trial of a new preventive therapies should she not become . This is a discussion we can continue to consider in the future. We did review in depth today some of the medication options that we can consider moving forward. -occipital nerve block and left temporalis trigger point injections performed today -continue Nurtec for acute therapy at home a -follow up in 1 month or sooner if needed Orders: Orders AMB Nerve Block Today G43.109 - Migraine with aura, not intractable, without status migrainosus, M54.81 - Occipital neuralgia AMB Trigger Point Injection Today F45.8 - Other somatoform disorders, G43.109 - Migraine with aura, not intractable, without status migrainosus Coding Level of Care Code Est Pt Level 3 (17321) Diagnoses Migraine with aura and without status migrainosus, not intractable G43.109 Bilateral occipital neuralgia M54.81 Bruxism (teeth grinding) F45.8 CPT Codes Nerve Block - CPT: 14567-Xgwtfkf Occipital ([id number]) Therapeutic Injection - Ther Injection 1: 66495-Rdbnwre Point Injection 1 or 2 sites ([id number])
== END 2025-03-24 08:30 | disposition home or self-care (01) ==
LOC: HO.HSM 08:03
PROVIDERS: Visit Provider Nurse Practitioner
DX: G43.109 Migraine with aura, not intractable, without status migrainosus (principal); M54.81 Occipital neuralgia; F45.8 Other somatoform disorders
CPT/HCPCS: 20552; 64405; 99213

== ENCOUNTER → 2025-03-24 08:03 | Outpatient (BNVA) | payer BC, SELFPAY | PROVIDERS: Visit Provider Nurse Practitioner | DX: G43.109 Migraine with aura, not intractable, without status migrainosus (principal); M54.81 Occipital neuralgia; M79.10 Myalgia, unspecified site | CPT/HCPCS: 20552; 64405; J0665; J2003 ==

== ENCOUNTER 2025-04-15 08:06 | Outpatient (AMB) | payer BC, SELFPAY ==
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
[2025-04-15 08:05] VITALS: BP 118/81; PULSE 80; RESP 16; O2SAT 99; BMI 26.0
--- OUTSIDE RECORDS SUMMARY | 2025-04-15 09:32 | XMS_ITS | Encounter Summary ---
Author Organization [facility] Address [address] [place] [address] [place] [phone] Phone Care Team Providers Care Maker Up Folding Name Role Phone Christopher Jones CNP Primary Care Provider [phone] Mirna Rosario MD Unavailable [phone] Tamar Herron RN Unavailable [email or web address] Dixie Jones PA-C Unavailable [phone] Encounter Details Date Type Department Care Team (Late st Contact Info) Description 02/14/2025 Telephone [facility] [address], [place] [id number] Aurora Hallman PA-C [address] [address] [email or web address] Social History Tobacco Use Types Packs/Day Years [...] high school, GED, job training, learning the [place] language, technical skills, or developing parenting skills)? [...] as of this encounter Progress Notes * Myke Mina - 02/24/2025 9:26 AM EST Patient called back looking for update. * Aurora Hallman PA-C - 02/14/2025 3:38 PM EDT Please schedule direct EGD and colonoscopy within the next 8 weeks please, can refer to previous telephone/Nimbulahart messages. documented in this encounter Plan of Treatment Upcoming Encounters Date Type Department Care Team (Late st Contact Info) Description 12/18/2024 Procedure Pass [address] [address] 05/12/2025 10:30 AM EST Office Visit [facility] [address] [place] [address] Aurora Hallman PA-C [address] [place] [address] 08/05/2025 7:45 AM EDT Appointment [address] [address] Christopher Jones, WEB EDITOR [address] [place] [phone] 12/24/2025 8:00 AM EDT Office Visit [facility] [address] [place] [phone] Christopher Jones, WEB EDITOR [address] [place] [email or web address] documented as of this encounter Visit Diagnoses Diagnosis Iron deficiency- Primary Disorders of iron metabolism Gastroesophageal reflux disease, unspecified whether esophagitis present documented in this encounter Additional Health Concerns Assessment Noted Time PHQ-9 Depression Total Score: 3 12/19/19 8:10 AM EDT PHQ-2 Depression Total Score: 2 12/19/19 8:10 AM EDT documented as of this encounter Care Teams Maker Up Folding Relationship Specialty Start Date End Date Christopher Jones CNP [address] [place] [address] PCP - General Family Medicine 03/16/23 Mirna Rosario MD [address] [address] Obstetrics and Gynecology 10/03/23 Tamar Herron RN [address] [place] [phone] [email or web address] Registered Nurse 10/03/23 Dixie Jones PA-C [address] [place] [address] [email or web address] Physician Film Technician Physician Film Technician 10/17/24 documented as of this encounter Additional Source Comments The information contained in this document represents components of the legal health record. It is not the complete legal health record.[facility]
--- OUTSIDE RECORDS SUMMARY | 2025-04-15 09:32 | XMS_ITS | Encounter Summary ---
Author Organization [facility] Address [address] [place] [address] Care Team Providers Care Alarm Installer Name Role Phone Unavailable Primary Care Provider Unavailabl e Prior Encounters Date Type Department Care Team Description 10/28/2021 5:00 PM MDT Office Visit [facility] [address], [address] [place], [place] [phone] Diane Estrada, [facility] 05/06/2019 Converted CPS Chart Documents [facility] [address] [employer] [phone] <No scans attached> 05/06/2019 Converted CPS Chart Documents [facility] [address], [address] [place] [phone] <No scans attached> 05/06/2019 Converted CPS Chart Documents [facility] [address] [place] [address] , [address] [place] [address] <No scans attached> 05/06/2019 Converted CPS Chart Documents [facility] [address], [address] [place], [place] [phone] <No scans attached> 05/06/2019 Converted 13x Documents [facility] [address] [place] [phone] <No scans attached> 05/06/2019 Converted 13x Documents [facility] [address], [address] [place] [phone] <No scans attached> 05/06/2019 Converted 13x Documents [facility] [address] [place] [address] , [address] [place] [address] <No scans attached> 05/06/2019 Converted 13x Documents [facility] [address], [address] [place] [address] <No scans attached> Last Filed Vital [...] 12 ENDODONTIC THERAPY, PREMOLAR TOOTH (EXCLUDING FINAL ANGLICAN) Routine 02/21/2018 1:00 AM MST 12 CEREC [...] 12 ENDODONTIC THERAPY, PREMOLAR TOOTH (EXCLUDING FINAL ANGLICAN) Routine 02/22/2017 1:00 AM MST 12 CORE BUILDUP, INCLUDING ANY PINS WHEN REQUIRED Routine 02/22/2017 1:00 AM MST 12 CEMENT CROWN Routine 02/22/2017 1:00 AM MST SINGLE X-RAY Routine 02/22/2017 1:00 AM MST 12 ENDODONTIC THERAPY, PREMOLAR TOOTH (EXCLUDING FINAL ANGLICAN) Routine 02/08/2017 1:00 AM MDT 12 ENDO [...] MDT Visit Diagnoses Not on file Insurance [facility] [place] FEDERAL GEHA CONNECTION DIRECT CARE SUPERVISOR PILE DRIVING OR SUPPLIER FEDERAL SERGIO LÓPEZ [id number]
--- OUTSIDE RECORDS SUMMARY | 2025-04-15 09:32 | XMS_ITS | Clinical Summary ---
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 Multiple small pedunculated and sessile polyps were found in the gastric body. The exam of the stomach was otherwise normal. Biopsy with a cold forceps on the greater curvatureof the gastric body, on the lesser curvature of the gastric body, on the greater curvature of thegastric antrum and on the lesser curvature of the gastric antrum was performed for histology. The examined duodenum was normal. Biopsies for histology were taken with a cold forceps for evaluation of celiac disease. Impression: - Normal esophagus. - Gastroesophageal flap valve classified as HillGrade II (fold present, opens with respiration). - Z-line regular, at the gastroesophagealjunction. - Esophagogastric landmarks identified. - Multiple gastric polyps. - Normal examined duodenum. Biopsied. - Biopsies were performed on the greater curvatureof the gastric body, on the lesser curvature of the gastric body, on the greater curvature of thegastric antrum and on the lesser curvature of the gastric antrum. Recommendation: - Patient has a contact number available for emergencies. The signsand symptoms of potential delayed complications were discussed with the patient. Return to normal activities tomorrow. Written discharge instructions were provided to the patient. - Await pathology results. - proceed with planned colonoscopy Michelle Barclay MICHELLE BARCLAY MD 03/10/2025 8:29:44 AM This report has been signed electronically. Number of Addenda: 0 Note Initiated On: 03/10/2025 7:25 AM Procedure Code(s): --- Professional --- 13221, Esophagogastroduodenoscopy, flexible, transoral; with biopsy, single or multiple --- Technical --- 57707, Esophagogastroduodenoscopy, flexible, transoral; with biopsy, single or multiple CPT copyright 2021 [employer]. All rights reserved. The codes documented in this report are preliminary and upon biztalk developer reviewmay be revised to meet current compliance requirements. Procedure Date: 03/10/2025 7:25:[address] [place] [address] Christopher Carson [facility] GI PROCEDURE ORDERABLES Fi nal Result * (ABNORMAL) CBC and differential (01/17/2025 8:42 AM EDT) WBC 4.67 4.00 - 11.00 K/uL [facility] RBC 4.52 4.00 - 5.20 M/uL [facility] HGB 12.3 12.0 - 16.0 g/dL [facility] HCT 39.0 36.0 - 46.0 % [facility] PLT 219 150 - 450 K/uL [facility] MCV 86.3 80.0 - 100.0 fL [facility] MCH 27.2 27.0 - 31.0 pg [facility] MCHC 31.5(L) 32.0 - 36.0 g/dL [facility] RDW 16.1(H) 11.5 - 14.5 % [facility] MPV 10.4 8.4 - 12.0 fL [facility] NRBC 0.00 0.00 /100 WBCs [facility] ABSOLUTE NRBC 0.00 0.00 K/uL [facility] DIFF METHOD Auto [facility] NEUTS 49.7 48.0 - 76.0 % [facility] LYMPHS 36.4 18.0 - 41.0 % [facility] MONOS 9.2 4.0 - 11.0 % [facility] EOS 4.1 0.0 - 5.0 % [facility] BASOS 0.2 0.0 - 1.5 % [facility] Granulocytes, immature (%) 0.4 0.0 - 0.9 % [facility] ABSOLUTE NEUTS 2.32 1.92 - 7.60 K/uL [facility] ABSOLUTE LYMPHS 1.70 0.72 - 4.10 K/uL [facility] ABSOLUTE MONOS 0.43 0.16 - 1.10 K/uL [facility] ABSOLUTE EOS 0.19 0.00 - 0.50 K/uL [facility] ABSOLUTE BASOS 0.01 0.00 - 0.15 K/uL [facility] Granulocytes, immature 0.02 0.00 - 0.09 K/uL [facility] Blood 01/17/2025 8:42 AM EDT 01/17/2025 8:45 AM EDT us Dixie Carson PA-C LAB BLOOD BKR ORDERABLES F inal Result Performing Organization Address City/[facility]/ZIP Co de Phone Number [address] [address] * (ABNORMAL) Folate (01/17/2025 8:42 AM EDT) FOLIC ACID >20.0(H) 4.2 - 19.9 ng/mL [facility] Blood 01/17/2025 8:42 AM EDT 01/17/2025 8:45 AM EDT us Dixie Carson PA-C LAB BLOOD BKR ORDERABLES F inal Result [address] [address] * Vitamin B12 (01/17/2025 8:42 AM EDT) VITAMIN B12 934 232 - 1,245 pg/mL [facility] Blood 01/17/2025 8:42 AM EDT 01/17/2025 8:45 AM EDT us Dixie Carson PA-C LAB BLOOD BKR ORDERABLES F inal Result [address] [address] * Comprehensive metabolic panel (12/18/2024 8:46 AM EDT) SODIUM 137 133 - 146 mmol/L [facility] POTASSIUM 3.9 3.3 - 5.1 mmol/L [facility] CHLORIDE 102 96 - 108 mmol/L [facility] CO2 27 21 - 35 mmol/L [facility] BUN 7 6 - 19 mg/dL [facility] CREATININE 0.50 0.5 - 1.5 mg/dL [facility] GLUCOSE 85 70 - 99 mg/dL [facility] ALBUMIN 4.0 3.9 - 4.8 g/dL [facility] TOTAL PROTEIN 7.5 6.5 - 8.0 g/dL [facility] CALCIUM 9.2 8.4 - 10.3 mg/dL [facility] ALKALINE PHOSPHATASE 60 39 - 117 U/L [facility] TOTAL BILIRUBIN 0.3 0.0 - 1.2 mg/dL [facility] AST 18 0 - 37 U/L [facility] ALT 14 0 - 40 U/L [facility] GLOBULIN 3.5 1 - 4.8 g/dL [facility] EGFR >120 >59 mL/min/1.7 3m2 [facility] Comment:Estimated glomerular filtration rate calculated using the CKD-EPI refit equation. ANION GAP 12 10 - 20 mmol/L [facility] Blood 12/18/2024 8:46 AM EDT 12/18/2024 8:51 AM EDT Christopher Carson REED CLEANER LAB BLOOD BKR ORDERABLES F inal Result [address] [address] * Hepatitis B surface antigen (07/17/2024 8:00 AM EDT) HBV SURFACE ANTIGEN NON-REACTI VE NON-REACTI VE [facility] Blood 07/17/2024 8:00 AM EDT 07/17/2024 8:07 AM EDT us Mirna Rosario MD LAB BLOOD BKR ORDERABLES Fi nal Result Performing Organization Address City/[facility]/ZIP Co de Phone Number [address] [address] * TSH with reflex (02/12/2024 7:34 AM EDT) TSH 1.77 0.27 - 4.20 uIU/mL [facility] Blood 02/12/2024 7:34 AM EDT 02/12/2024 7:38 AM EDT us Jersey Garza MD LAB BLOOD BKR ORDERABLES Final Result Performing Organization Address [facility] Co de Phone Number [address] [address] * Pap Test (07/20/2023 12:00 AM EDT) Report [address] [address] Workforce Staffing Advisor: Jade Talavera MD BAND MANAGER Cytology Report FINAL DIAGNOSIS A. PAP SMEAR [...] 59, 66, 68) Note: Testing performed by Tenebrillarity HR-HPV analysis. Clinical correlation is advised. This HPV test was performed at [address] This test has been FDA approved for both SurePath and ThinPrep cervical cytology specimens. The accuracy and precision of this test for all other specimen sources has been verified in the Cytopathology Laboratory of the [facility] and has not been cleared or approved by the U.S. Food and Drug Administration. Clinical correlation is advised. CLINICAL HISTORY Date of Last Menstrual Period: 06-29-2022 Other Clinical Conditions: Screening Pap SPECIMEN SOURCE A: PAP SMEAR (SUREPATH) CE Patient Name: BINA COMBS : 1990 (Age: 33) Sex: F Institution: [facility] Location: [facility] Date of Collection: 07/20/2023 Date of Reported: 07/28/2023 11:33 Results to: Christopher Carson SCHOOL CLERK [facility] Final Diagnosis A. PAP SMEAR (SUREPATH) CE: SPECIMEN ADEQUACY: Satisfactory for evaluation; transformation zone present. INTERPRETATION: NEGATIVE FOR INTRAEPITHELIAL LESION OR MALIGNANCY. [facility] Results\Inter pretation A. PAP SMEAR (SUREPATH) CE: Human Papilloma Virus TestNEGATIVE for high-risk Human Papilloma Virus types 16, 18, 45 and the Other high risk probe set (Includes 31, 33, 35, 39, 51, 52, 56, 58, 59, 66, 68)Note: Testing performed by Evririty HR-HPV analysis. Clinical correlation is advised. This HPV test was performed at [address] This test has been FDA approved for both SurePath and ThinPrep cervical cytology specimens. The accuracy and precision of this test for all other specimen sources has been verified in the Cytopathology Laboratory of the [facility] and has not been cleared or approved by the U.S. Food and Drug Administration. Clinical correlation is advised. [facility] Conversion Type (Conversion Source) 07/20/2023 07/24/2023 9:18 AM EDT us Christopher Carson REED CLEANER CYTOLOGY ORDERABLES Edited Result - Final [facility] [address] [place] [address] from Last 3 Months or Most Recently Relevant to Health Maintenance Insurance [facility] PPO EPO [facility] PPO EPO [facility] PPO EPO [facility] PPO EPO [facility] PPO EPO Care Teams Welder Fitter Apprentice Relationship Specialty Start Date End Date Christopher Carson CNP 29 [facility] [place] [address] PCP - General Family Medicine 03/16/23 Mirna Rosario MD [address] [place] [address] Obstetrics and Gynecology 10/03/23 Tamar Herron, KATERINA [address] [place] [address] [email or web address] Registered Nurse 10/03/23 Dixie Carson, PAZoieC [address] [place] [address] Physician Extension Course Coordinator Physician Extension Course Coordinator 10/17/24 Additional Source Comments The information contained in this document represents components of the legal health record. It is not the complete legal health record.[facility]
--- OUTSIDE RECORDS SUMMARY | 2025-04-15 09:32 | XMS_ITS | Encounter Summary ---
Author Organization [facility] Address [address] [place] [address] Phone Care Team Providers Care Home Care Scheduler Name Role Phone Christopher Jones CNP Primary Care Provider [phone] Mirna Rosario MD Unavailable [phone] Tamar Herron RN Unavailable [email or web address] Dixie Jones PA-C Unavailable [phone] Encounter Details Date Type Department Care Team (Late st Contact Info) Description 10/31/2023 Transcribe Orders [facility] Specimen Processing [address] [place] [address] Christopher Jones CNP 29 [facility] [place] [address] [email or web address] Social History Tobacco Use Types Packs/Day Years [...] Contact Info) Description 12/18/2024 Procedure Pass [address] [address] 05/12/2025 10:30 AM EST Office Visit [facility] Gastroenterology Clinic 10 [place] [address] Aurora Hallman PA-C [address] [address] 08/05/2025 7:45 AM EDT Appointment [address] [address] Christopher Jones CNP [address] [place] [address] 12/24/2025 8:00 AM EDT Office Visit [facility] Primary Care Clinic [address] [place] [address] Christopher Jones CNP [address] [place] [address] documented as of this encounter Visit Diagnoses Not on filedocumented in this encounter Care Teams Home Care Scheduler Relationship Specialty Start Date End Date Christopher Jones CNP [address] [place] [address] PCP - General Family Medicine 03/16/23 Mirna Rosario MD [address] [place] [address] [address] [place] [address] [email or web address] Obstetrics and Gynecology 10/03/23 Tamar Herron RN [address] [place] [address] [email or web address] Registered Nurse 10/03/23 Dixie Jones PA-C [address] [place] [address] [email or web address] Physician Medical Technicians Physician Medical Technicians 10/17/24 documented as of this encounter Additional Source Comments The information contained in this document represents components of the legal health record. It is not the complete legal health record.[facility]
--- OUTSIDE RECORDS SUMMARY | 2025-04-15 09:32 | XMS_ITS | Encounter Summary ---
Author Organization [facility] Address [address] [place] [address] Phone Care Team Providers Care Appliance Assembler Name Role Phone Christopher Jones CNP Primary Care Provider [phone] Mirna Rosario MD Unavailable [phone] Tamar Herron RN Unavailable [email or web address] Dixie Jones PA-C Unavailable [phone] Encounter Details Date Type Department Care Team (Late st Contact Info) Description 01/21/2025 Telephone [facility] Virtual Urgent Care [address] [place] [address] Dez Li PA-C [address] [facility] [place] [address] [email or web address] Social History Tobacco Use Types Packs/Day Years [...] high school, GED, job training, learning the Armenian language, technical skills, or developing parenting skills)? [...] st Contact Info) Description 12/18/2024 Procedure Pass [address] [address] 05/12/2025 10:30 AM EST Office Visit [facility] Gastroenterology Clinic 10 [place] [address] Aurora Hallman PA-C [address] [address] 08/05/2025 7:45 AM EDT Appointment [address] [address] Christopher Jones CNP [address] [place] [address] 12/24/2025 8:00 AM EDT Office Visit [facility] [address] [place] [address] Christopher Jones CNP [address] [place] [address] documented as of this encounter Visit Diagnoses Not on filedocumented in this encounter Additional Health Concerns Assessment Noted Time PHQ-9 Depression Total Score: 3 12/19/19 25 8:10 AM EDT PHQ-2 Depression Total Score: 2 12/19/19 25 8:10 AM EDT documented as of this encounter Care Teams Appliance Assembler Relationship Specialty Start Date End Date Christopher Jones CNP [address] [place] [address] PCP - General Family Medicine 03/16/23 Mirna Rosario MD [address] [place] [address] Obstetrics and Gynecology 10/03/23 Tamar Herron RN [address] [place] [address] [email or web address] Registered Nurse 10/03/23 Dixie Jones PA-C [address] [place] [address] [email or web address] Physician Record Label Internship Physician Record Label Internship 10/17/24 documented as of this encounter Additional Source Comments The information contained in this document represents components of the legal health record. It is not the complete legal health record.[facility]
--- OUTSIDE RECORDS SUMMARY | 2025-04-15 09:32 | XMS_ITS | Encounter Summary ---
Author Organization [facility] Address [address] [place] [address] [place] [address] Phone Care Team Providers Care Civil Engineering Designer Name Role Phone Christopher Jones CNP Primary Care Provider [phone] Mirna Rosario MD Unavailable [phone] Tamar Herron RN Unavailable [email or web address] Dixie Jones PA-C Unavailable [phone] Encounter Details Date Type Department Care Team (Late st Contact Info) Description 08/04/2023 Procedure Pass [address] [place] [address] Social History Tobacco Use Types Packs/Day Years [...] st Contact Info) Description 12/18/2024 Procedure Pass [address] [address] 05/12/2025 10:30 AM EST Office Visit [facility] Gastroenterology Clinic 10 [place] [address] Aurora Hallman PA-C [address] [address] 08/05/2025 7:45 AM EDT Appointment [address] [address] Christopher Jones CNP [address] [place] [address] 12/24/2025 8:00 AM EDT Office Visit [facility] Primary [facility] [address] [address] Christopher Jones CNP [address] [place] [address] documented as of this encounter Visit Diagnoses Not on filedocumented in this encounter Additional Health Concerns Infection Onset Date Last Indicated Resolved Time CoV-Risk 08/11/2023 08/11/2023 08/22/2023 1:22 AM EDT documented as of this encounter Care Teams Civil Engineering Designer Relationship Specialty Start Date End Date Christopher Jones CNP [address] [place] [address] PCP - General Family Medicine 03/16/23 Mirna Rosario MD [address] [place] [address] [address] [place] [address] [email or web address] Obstetrics and Gynecology 10/03/23 Tamar Herron RN [address] [place] [address] [email or web address] Registered Nurse 10/03/23 Dixie Jones, JUAN PABLOC [address] [place] [address] [email or web address] Physician Chief Of Field Operations Physician Chief Of Field Operations 10/17/24 documented as of this encounter Additional Source Comments The information contained in this document represents components of the legal health record. It is not the complete legal health record.[facility]
--- OUTSIDE RECORDS SUMMARY | 2025-04-15 09:32 | XMS_ITS | Encounter Summary ---
Author Organization [facility] Address [address] [place] [address] [place] [address] Phone Care Team Providers Care Check Pilot Name Role Phone Christopher Jones CNP Primary Care Provider [phone] Mirna Rosario MD Unavailable [phone] Tamar Herron RN Unavailable [email or web address] Dixie Jones PA-C Unavailable [phone] Encounter Details Date Type Department Care Team (Late st Contact Info) Description 03/10/2025 Procedure Pass [facility] Endoscopy Admitting Dept Virtual Department 30 [place], [place] [id number] Social History Tobacco Use Types Packs/Day Years [...] high school, GED, job training, learning the [place] language, technical skills, or developing parenting skills)? [...] st Contact Info) Description 12/18/2024 Procedure Pass [address] [address] 05/12/2025 10:30 AM EST Office Visit [facility] Gastroenterology [facility] 10 [place] [address] Aurora Hallman PA-C [address] [address] 08/05/2025 7:45 AM EDT Appointment [facility]- [address] [address] Christopher Jones, LIA [address] [place] [address] 12/24/2025 8:00 AM EDT Office Visit [facility] Primary [facility] Clinic [address] [place] [address] Christopher Jones, LIA [address] [place] [address] [email or web address] documented as of this encounter Visit Diagnoses Not on filedocumented in this encounter Additional Health Concerns Assessment Noted Time PHQ-9 Depression Total Score: 3 12/19/19 25 8:10 AM EDT PHQ-2 Depression Total Score: 2 12/19/19 25 8:10 AM EDT documented as of this encounter Care Teams Check Pilot Relationship Specialty Start Date End Date Christopher Jones CNP [address] [place] [address] PCP - General Family Medicine 03/16/23 Mirna Rosario MD [address] [place] [address] Obstetrics and Gynecology 10/03/23 Tamar Herron RN [address] [place] [address] [email or web address] Registered Nurse 10/03/23 Dixie Jones PA-C [address] [place] [address] [email or web address] Physician Pizza Hut Assistant Physician Pizza Hut Assistant 10/17/24 documented as of this encounter Additional Source Comments The information contained in this document represents components of the legal health record. It is not the complete legal health record.[facility]
--- OUTSIDE RECORDS SUMMARY | 2025-04-15 09:32 | XMS_ITS | Clinical Summary ---
Author Organization [facility] Address [address] [place] [address] Care Team Providers Care Olericulturist Name Role Phone Unavailable Primary Care Provider Unavailabl e Allergies Active Allergy Reactions Criticality Noted Date Comments Penicillins Hives,Rash Low 12/01/2016 hives Medications ascorbate calcium, vitamin C, (Vitamin C, ascorbate calcium,) 814 mg/gram powder Take by mouth. Active zinc sulfate 66 mg tablet Take by mouth. Activ e prenat.vits,april, vmt-[id number]-[id number] tablet Take by mouth. Activ e LACTOBAC [...] Most Recently Relevant to Health Maintenance Insurance [facility] [place] [facility] CONNECTION DIRECT CARE [place]IGN [place] [id number]
== END 2025-04-15 08:24 | disposition home or self-care (01) ==
LOC: HO.HSM 08:06
PROVIDERS: Visit Provider Nurse Practitioner
DX: G43.109 Migraine with aura, not intractable, without status migrainosus (principal); M79.18 Myalgia, other site; F45.8 Other somatoform disorders; M54.81 Occipital neuralgia
CPT/HCPCS: 20553; 64405; 99213

== ENCOUNTER → 2025-04-15 08:06 | Outpatient (BNVA) | payer BC, SELFPAY | PROVIDERS: Visit Provider Nurse Practitioner | DX: G43.109 Migraine with aura, not intractable, without status migrainosus (principal); M54.81 Occipital neuralgia; M79.18 Myalgia, other site | CPT/HCPCS: 20553; 64405; J0665 ==